=== PATIENT | female | born 1945 | race Caucasian/White ===

== ENCOUNTER 2017-07-07 21:55 | Emergency (ER) | payer MEDICARE, BC ==
[2017-07-07] MEDS ORDERED: Sodium Chloride 0.9% 1,000 ML IV SCH (22:15)
--- NOTE | 2017-07-07 22:17 | EDM.PDOC ---
ED HPI GENERAL MEDICAL PROBLEM - General Chief Complaint: General Stated Complaint: WEAK [id number] Time Seen by Provider: 07/07/17 22:14 Source of Information: Reports: Patient, Family History Limitations: Reports: No Limitations - History of Present Illness INITIAL COMMENTS - FREE TEXT/NARRATIVE: c/o weakness today, though was low BS but it was 355. no CP/SOB. feels better now. also has sore on abd on-off few months. seen PMD but nothing much done. on no ABX. - Related Data Allergies Allergy/AdvReac Type Severity Reaction Status Date / Time rosuvastatin calcium Allergy unknown Verified 07/07/17 22:33 [From Crestor] Home Meds: Home Meds Glimepiride [Amaryl] 4 mg PO DAILY 07/07/17 [History] Hydrochlorothiazide 25 mg PO DAILY 07/07/17 [History] Insulin Aspart [NovoLOG] See Protocol SUBCUT DAILY PRN 07/07/17 [History] Insulin Glarg,Human.Rec.Analog [LantUS Solostar] 34 unit SUBCUT DAILY 07/07/17 [ History] Lisinopril [Lisinopril] 40 mg PO DAILY 07/07/17 [History] Metoprolol Tartrate 100 mg PO DAILY 07/07/17 [History] amLODIPine [Norvasc] 5 mg PO DAILY 07/07/17 [History] Past Medical History Endocrine/Metabolic History: Reports: Diabetes, Type I - Past Surgical History GI Surgical History: Reports: Cholecystectomy Social & Family History - Tobacco Use Smoking Status *Q: Never Smoker - Recreational Drug Use Recreational Drug Use: No ED ROS GENERAL - Review of Systems Review Of Systems: ROS reveals no pertinent complaints other than HPI. ED EXAM, GENERAL - Physical Exam Exam: See Below Exam Limited By: No Limitations General Appearance: Alert, WD/WN, No Apparent Distress Ears: Hearing Grossly Normal Throat/Mouth: Normal Voice, No Airway Compromise Head: Atraumatic Neck: Non-Tender, Full Range of Motion Respiratory/Chest: No Respiratory Distress Cardiovascular: Regular Rate, Rhythm GI/Abdominal: Soft, Non-Tender. No: Distended, Guarding, Rigid, Rebound, Tender , Abnormal Bowel Sounds Neurological: Alert, Oriented, Normal Cognition, No Motor/Sensory Deficits Psychiatric: Normal Affect, Normal Mood Skin Exam: Warm, Dry, Normal Color, Erythema, Rash, Other (over abdomen) Lymphatic: No Adenopathy Course - Vital Signs Last Recorded V/S: Last Vital Signs Temp 37.1 C 07/07/17 22:10 Pulse 115 H 07/07/17 22:10 Resp 18 07/07/17 22:10 BP 136/80 07/07/17 22:10 Pulse Ox 98 07/07/17 22:10 - Orders/Labs/Meds Orders: Active Orders 24 hr Category Date Time Status CULTURE BLOOD [BC] Stat Lab 07/07/17 22:25 Received Sodium Chloride 0.9% [Normal Saline] 1,000 ml Med 07/07/17 22:15 Active IV ASDIRECTED Medication Orders Sodium Chloride (Normal Saline) 1,000 mls @ 125 mls/hr IV ASDIRECTED SKY Last Admin: 07/07/17 22:34 Dose: 125 mls/hr Labs: Laboratory Tests 07/07/17 07/07/17 07/07/17 Range/Units 22:25 22:25 22:25 WBC 17.3 H (5.0-10.0) 10^3/uL RBC 4.73 (4.2-5.4) 10^6/uL Hgb 14.6 (12.0-16.0) g/dL Hct 43.1 (37.0-47.0) % MCV 91.1 (80-100) fL MCH 30.9 (27.0-34.0) pg MCHC 33.9 (33.0-35.0) g/dL Plt Count 333 (150-450) 10^3/uL Neut % (Auto) 88.7 H (42.2-75.2) % Lymph % (Auto) 3.8 L (20.5-50.1) % Ware % (Auto) 7.3 (2-8) % Eos % (Auto) 0.0 L (1.0-3.0) % Baso % (Auto) 0.2 (0.0-1.0) % VBG pH (7.31-7.41) VBG pCO2 (41-51) mmHg VBG pO2 (35-42) mmHg VBG HCO3 (19-25) mmol/l VBG O2 Saturation (60-80) % VBG Base Excess ((-2)-(+3)) mmol/l O2 Delivery Device Sodium 129 L (135-145) mmol/L Potassium 4.1 (3.6-5.0) mmol/L Chloride 94 L (101-111) mmol/L Carbon Dioxide 19.0 L (21.0-31.0) mmol/L Anion Gap 20.1 BUN 28 H (7-18) mg/dL Creatinine 2.3 H (0.6-1.3) mg/dL Est Cr Clr Drug Dosing 18.81 mL/min Estimated GFR (MDRD) 21 BUN/Creatinine Ratio 12.17 Glucose 445 H* (74-105) mg/dL POC Glucose (83-110) mg/dl Lactic Acid 3.7 H (0.5-2.2) mmol/L Calcium 9.4 (8.4-10.2) mg/dl Total Bilirubin 1.4 H (0.2-1.0) mg/dL AST 38 (10-42) IU/L ALT 26 (10-60) IU/L Alkaline Phosphatase 94 (42-121) IU/L B-Natriuretic Peptide (0-100) pg/ml Total Protein 8.1 (6.7-8.2) g/dl Albumin 3.7 (3.2-5.5) g/dl Globulin 4.4 Albumin/Globulin Ratio 0.84 07/07/17 07/07/17 07/08/17 Range/Units 22:25 23:36 00:03 WBC (5.0-10.0) 10^3/uL RBC (4.2-5.4) 10^6/uL Hgb (12.0-16.0) g/dL Hct (37.0-47.0) % MCV (80-100) fL MCH (27.0-34.0) pg MCHC (33.0-35.0) g/dL Plt Count (150-450) 10^3/uL Neut % (Auto) (42.2-75.2) % Lymph % (Auto) (20.5-50.1) % Ware % (Auto) (2-8) % Eos % (Auto) (1.0-3.0) % Baso % (Auto) (0.0-1.0) % VBG pH 7.35 (7.31-7.41) VBG pCO2 31 L (41-51) mmHg VBG pO2 33 L (35-42) mmHg VBG HCO3 17 L (19-25) mmol/l VBG O2 Saturation 58.5 L (60-80) % VBG Base Excess -7.3 L ((-2)-(+3)) mmol/l O2 Delivery Device Room air Sodium (135-145) mmol/L Potassium (3.6-5.0) mmol/L Chloride (101-111) mmol/L Carbon Dioxide (21.0-31.0) mmol/L Anion Gap BUN (7-18) mg/dL Creatinine (0.6-1.3) mg/dL Est Cr Clr Drug Dosing mL/min Estimated GFR (MDRD) BUN/Creatinine Ratio Glucose (74-105) mg/dL POC Glucose 407 H* (83-110) mg/dl Lactic Acid (0.5-2.2) mmol/L Calcium (8.4-10.2) mg/dl Total Bilirubin (0.2-1.0) mg/dL AST (10-42) IU/L ALT (10-60) IU/L Alkaline Phosphatase (42-121) IU/L B-Natriuretic Peptide 126 H (0-100) pg/ml Total Protein (6.7-8.2) g/dl Albumin (3.2-5.5) g/dl Globulin Albumin/Globulin Ratio Meds: Medications Generic Name Dose Route Start Last Admin Trade Name Freq PRN Reason Stop Dose Admin Sodium Chloride 1,000 mls @ 125 mls/hr 07/07/17 22:15 07/07/17 22:34 Normal Saline IV 125 mls/hr ASDIRECTED SKY Administration Discontinued Medications Generic Name Dose Route Start Last Admin Trade Name Freq PRN Reason Stop Dose Admin Clindamycin Phosphate 900 mg/ 106 mls @ 200 mls/hr 07/07/17 23:50 07/07/17 23 :58 Sodium Chloride IV 07/08/17 00:21 200 mls/hr ONETIME ONE Administration Insulin Human Regular 5 unit 07/07/17 23:04 07/07/17 23:12 Humulin R IV 07/07/17 23:05 5 units ONETIME ONE Administration Protocol - Re-Assessments/Exams Free Text/Narrative Re-Assessment/Exam: 07/08/17 01:14 results discussed with pt and case discussed with Dr Mcmillan @ who kindly accepted pt. Departure - Departure Time of Disposition: 01:14 Disposition: DC/Tfer to Acute Hospital 02 Condition: Fair Clinical Impression: Abdominal wall cellulitis DKA (diabetic ketoacidoses) Qualifiers: Diabetes mellitus type: other specified (including ELOY) Diabetes mellitus complication detail: without coma Qualified Code(s): E13.10 - Other specified diabetes mellitus with ketoacidosis without coma - Discharge Information Forms: Interfacility Transfer EMTALA - My Orders Last 24 Hours: My Active Orders 07/07/17 22:15 Sodium Chloride 0.9% [Normal Saline] 1,000 ml IV ASDIRECTED 07/07/17 22:25 CULTURE BLOOD [BC] Stat - Assessment/Plan Last 24 Hours: My Active Orders 07/07/17 22:15 Sodium Chloride 0.9% [Normal Saline] 1,000 ml IV ASDIRECTED 07/07/17 22:25 CULTURE BLOOD [BC] Stat
[2017-07-07] MEDS ORDERED: Insulin Regular, Human 100 Units/ML 3 ML Vial IV ONE (23:04)
[2017-07-07 23:45] LABS: BASE EXCESS VENOUS -7.3 mmol/l ((-2)-(+3)); BICARBONATE,VENOUS 17 mmol/l (19-25); O2 DELIVERY DEVICE ROOM AIR; O2 SATURATION VENOUS 58.5 % (60-80); PCO2 VENOUS 31 mmHg (41-51); PO2 VENOUS 33 mmHg (35-42)
[2017-07-07 23:49] LABS: PH,VENOUS 7.35 (7.31-7.41)
[2017-07-07] MEDS ORDERED: Clindamycin Phosphate 900 MG in Sodium Chloride 0.9% 100 ML IV ONE (23:50)
[2017-07-08] MEDS ORDERED: Insulin Regular, Human 100 Units/ML 3 ML Vial IV SCH (08:00)
== END 2017-07-08 01:56 ==
LOC: DL.ED 21:55
DX: E10.10 Type 1 diabetes mellitus with ketoacidosis without coma (principal); L03.311 Cellulitis of abdominal wall; Z79.4 Long term (current) use of insulin; Z79.899 Other long term (current) drug therapy; Z88.8 Allergy status to other drugs, medicaments and biological substances
CPT/HCPCS: 36415; 71250; 74176; 80053; 82803; 82962; 83605; 83880; 85025; 87040; 96361; 96365; 96375; 99285; J1815; J7030; J7050; 87077; 87186; 99284; S0077

== ENCOUNTER 2020-05-12 11:09 | Inpatient (IN) | payer MEDICARE, MEDICAID ==
[2020-05-12] MEDS ORDERED: Ondansetron 4 MG/2 ML SDV IVPUSH PRN (12:17)
[2020-05-12] MEDS ORDERED: Magnesium Hydroxide 400 MG/5 ML Susp 30 ML Cup PO PRN (12:17)
--- NOTE | 2020-05-12 12:36 | PCM.HP ---
H&P History of Present Illness - General Date of Service: 05/12/20 Admit Problem/Dx: Admission Diagnosis/Problem Admission Diagnosis/Problem CHF, Congestive heart failure Source of Information: Patient History Limitations: Reports: No Limitations - History of Present Illness Initial Comments - Free Text/Narative: Cindy is a 74-year-old female with past medical history of type 2 diabetes, hypertension, hyperlipidemia, CKD stage III who presented to the clinic today for evaluation of increasing lower extremity swelling and dyspnea on exertion onset over a week. Per patient over the past 1 week she she noticed increasing swelling to lower extremities bilaterally. She says swelling started with her bilateral feet but has increased progressively to involve the whole leg. She also reports dyspnea on exertion. Shortness of breath is more with activity but okay at rest. She denies cough, wheezing. No fever or chills. She denies orthopnea, PND. She denies calf pain. No recent travel or sick contacts. She denies abdominal pain, nausea, diarrhea. She also reports weight gain over the past week. Clinic vitals were stable. Labs essentially unremarkable. Opponent negative. Creatinine 1.7 at baseline. Globin stable at 11.6. WBC 3.4. Chest x-ray show mild pulmonary venous congestion which is new. Admission was requested for further management. Onset of Symptoms: Reports: Gradual Duration of Symptoms: Reports: Day(s): Location: Reports: Lower Extremity, Left, Lower Extremity, Right Quality: Reports: Ache Improves with: Reports: None Worsens with: Reports: None Associated Symptoms: Reports: Shortness of Breath, Weakness Right Lower Leg Pain Score (Numeric/FACES): 0 - Related Data Allergies/Adverse Reactions: Allergies Allergy/AdvReac Type Severity Reaction Status Date / Time rosuvastatin calcium Allergy unknown Verified 05/12/20 11:28 [From Crestor] Home Medications: Home Meds Glimepiride [Amaryl] 4 mg PO ACBREAKFAST 07/07/17 [History] Hydrochlorothiazide 25 mg PO DAILY 07/07/17 [History] Insulin Aspart [NovoLOG] 5 - 20 unit SUBCUT TID PRN 07/07/17 [History] Lisinopril 20 mg PO DAILY 07/07/17 [History] Metoprolol Tartrate 200 mg PO BID 07/07/17 [History] amLODIPine [Norvasc] 5 mg PO BID 07/07/17 [History] Cyanocobalamin (Vitamin B-12) [Cyanocobalamin Injection] 1,000 mcg INJECT .MONTHLY 05/12/20 [History] Insulin Glargine,Hum.Rec.Anlog [Basaglar Kwikpen U-100] 34 units SUBCUT BEDTIME 05/12/20 [History] Isosorbide Mononitrate [Isosorbide Mononitrate ER] 60 mg PO BID 05/12/20 [History] Sertraline HCl 25 mg PO DAILY 05/12/20 [History] Past Medical History Cardiovascular History: Reports: High Cholesterol, Hypertension Gastrointestinal History: Reports: None [employer] History: Reports: Musculoskeletal History: Reports: Arthritis Other Musculoskeletal History: 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 Endocrine/Metabolic History: Reports: Diabetes, Type I - Infectious Disease History Infectious Disease History: Reports: Chicken Pox, Measles, Mumps - Past Surgical History Cardiovascular Surgical History: Reports: None GI Surgical History: Reports: Cholecystectomy Musculoskeletal Surgical History: Reports: None Social & Family History - Family History Family Medical History: Noncontributory - Tobacco Use Smoking Status *Q: Former Smoker Used Tobacco, but Quit: No Second Hand Smoke Exposure: No - Caffeine Use Caffeine Use: Reports: Coffee - Recreational Drug Use Recreational Drug Use: No H&P Review of Systems - Review of Systems: Review Of Systems: See Below General: Reports: No Symptoms HEENT: Reports: No Symptoms Pulmonary: Reports: Shortness of Breath Cardiovascular: Reports: No Symptoms Gastrointestinal: Reports: No Symptoms Genitourinary: Reports: No Symptoms Musculoskeletal: Reports: Other (Bilateral lower extremity pitting edema) Skin: Reports: No Symptoms Psychiatric: Reports: No Symptoms Neurological: Reports: No Symptoms Hematologic/Lymphatic: Reports: No Symptoms Immunologic: Reports: No Symptoms Exam - Exam Exam: See Below - Vital Signs Vital Signs: Last Vital Signs Temp 97.4 F 05/12/20 11:27 Pulse 64 05/12/20 11:27 Resp 18 05/12/20 11:27 BP 147/64 H 05/12/20 11:27 Pulse Ox 98 05/12/20 11:27 Weight: 289 lb 6.4 oz - Exam Quality Assessment: DVT Prophylaxis General: Alert, Oriented, 4 HEENT: PERRLA, Hearing Intact, Mucosa Moist & [place], Nares Patent, Normal Nasal Septum, Posterior Pharynx Clear, Conjunctiva Clear, EOMI, EACs Clear, TMs Clear Neck: JVD Lungs: Crackles, Other (Mild bibasilar crackles) Cardiovascular: Regular Rate, Regular Rhythm GI/Abdominal Exam: Normal Bowel Sounds, Soft, Non-Tender, No Organomegaly, No Distention, No Abnormal Bruit, No Mass, Pelvis Stable (Female) Exam: Normal External Exam, Normal Speculum Exam, Normal Bimanual Exam Rectal (Female) Exam: Deferred Back Exam: Normal Inspection, Full Range of Motion, NT Extremities: Pedal Edema (Bilateral pitting edema up to mid thigh), Other Skin: Warm, Dry, Intact Neurological: Cranial Nerves Intact, Reflexes Equal Bilateral Neuro Extensive - Mental Status: Alert, Oriented x3, Normal Mood/Affect, Normal Cognition Neuro Extensive - Motor, Sensory, Reflexes: CN II-XII Intact, Normal Gait, Normal Reflexes Psychiatric: Alert, Normal Affect, Normal Mood - Patient Data Result Diagrams: 05/13/20 05:43 05/13/20 05:43 - Problem List (1) Acute exacerbation of CHF (congestive heart failure) SNOMED Code(s): 583944628, 34683094815409 ICD Code: I50.9 - HEART FAILURE, UNSPECIFIED Status: Acute Current Visit: Yes Problem List Initiated/Reviewed/Updated: Yes Orders Last 24hrs: Active Orders 24 hr Category Date Time Status Patient Status [ADT] Routine ADT 05/12/20 12:17 Ordered Ambulate [RC] ASDIRECTED Care 05/12/20 12:17 Ordered Blood Glucose Check, Bedside [RC] QIDACANDBED Care 05/12/20 12:17 Ordered Height and Weight [RC] DAILY Care 05/12/20 12:17 Ordered Intake and Output [RC] QSHIFT Care 05/12/20 12:20 Ordered Notify Provider Vital Signs [RC] ASDIRECTED Care 05/12/20 12:21 Ordered Oxygen Therapy [RC] PRN Care 05/12/20 12:17 Ordered Pulse Oximetry [RC] PRN Care 05/12/20 12:20 Ordered VTE/DVT Education [RC] PER UNIT ROUTINE Care 05/12/20 12:17 Ordered Vital Signs [RC] Q4H Care 05/12/20 12:17 Ordered PT Evaluation and Treatment [CONS] Routine Cons 05/12/20 12:27 Ordered Consistent Carbohydrate Diet [DIET] Diet 05/12/20 Dinner Active B-TYPE NATRIURETIC PEPTIDE,BNP [CHEM] Routine Lab 05/12/20 12:29 Ordered COMPREHENSIVE METABOLIC PN,CMP [CHEM] AM Lab 05/13/20 05:11 Ordered MAGNESIUM [CHEM] Routine Lab 05/12/20 12:27 Ordered PHOSPHORUS [CHEM] Routine Lab 05/12/20 12:27 Ordered Acetaminophen [TylenoL] Med 05/12/20 12:17 Ordered 650 mg PO Q4H PRN Heparin Sodium Med 05/12/20 21:00 Ordered 5,000 units SUBCUT Q12HR Magnesium Hydroxide [Milk of Magnesia] Med 05/12/20 12:17 Ordered 30 ml PO Q12H PRN Ondansetron [Zofran] Med 05/12/20 12:17 Ordered 4 mg IVPUSH Q6H PRN Resuscitation Status Routine Resus Stat 05/12/20 12:17 Ordered Medication Orders Heparin Sodium (Porcine) (Heparin Sodium) 5,000 units SUBCUT Q12HR SKY Assessment/Plan Comment:: #Acute CHF exacerbation Patient presented with increasing bilateral leg swelling and dyspnea on exertion Bilateral pitting edema with mild bibasilar crackles on exam Admit to medical floor Monitor vitals BNP Echo IV Lasix 40 mg twice daily GDMT:ACEi, BB Daily weights Fluid restriction #Type 2 diabetes Continue home insulin regimen SSI for optimal glycemic control Accu-Cheks Progressing with protocol #Hypertension BP within acceptable limits Continue home medication #Hyperlipidemia Continue statin #CKD stage III Stable creatinine and GFR Monitor renal function closely #Diet Consistent carbohydrate #CODE STATUS Had a discussion with patient and she requested to be full code at this time.
[2020-05-12] MEDS: Acetaminophen 325 MG Tab PO PRN ×2 (13:51→22:02)
[2020-05-12] MEDS: Furosemide 40 MG/4 ML VIAL IVPUSH SCH (14:24)
[2020-05-12] MEDS ORDERED: Insulin Lispro 100 Units/ML 3 ML Vial SUBCUT SCH (17:00)
[2020-05-12] MEDS: Insulin Lispro 100 Units/ML 3 ML Vial SUBCUT SCH ×2 (18:11→21:44)
[2020-05-12] MEDS ORDERED: amLODIPine 5 MG Tab PO SCH (21:00)
[2020-05-12] MEDS ORDERED: Heparin Sodium 5,000 Units/ML Vial SUBCUT SCH (21:15)
[2020-05-12] MEDS: Insulin Glarg,Human.Rec.Analog 100 Unit/ML SUBCUT SCH (21:46)
[2020-05-12] MEDS: Isosorbide Mononitrate 60 MG Tab.ER PO SCH (21:49)
[2020-05-12] MEDS: Metoprolol Tartrate 50 MG Tab PO SCH (21:50)
[2020-05-12] MEDS ORDERED: Heparin Sodium 5,000 Units/ML Vial SUBCUT ONE (22:15)
[2020-05-13 06:53] LABS: ANION GAP 11.4 mEq/L (7-13)
[2020-05-13] MEDS ORDERED: Hydrochlorothiazide 25 MG Tab PO SCH (09:00)
[2020-05-13] MEDS ORDERED: Furosemide 20 MG/2 ML VIAL IVPUSH ONE (09:00)
[2020-05-13] MEDS: Furosemide 40 MG/4 ML VIAL IVPUSH SCH ×2 (09:07→17:04)
[2020-05-13] MEDS: Glimepiride 2 MG Tab PO SCH (09:08)
[2020-05-13] MEDS: Lisinopril 20 MG Tab PO SCH (09:08)
[2020-05-13] MEDS: Isosorbide Mononitrate 60 MG Tab.ER PO SCH ×2 (09:08→21:04)
[2020-05-13] MEDS: Sertraline 50 MG Tab PO SCH (09:08)
[2020-05-13] MEDS: Metoprolol Tartrate 50 MG Tab PO SCH ×2 (09:10→21:05)
[2020-05-13] MEDS: Insulin Lispro 100 Units/ML 3 ML Vial SUBCUT SCH ×4 (09:10→21:19)
[2020-05-13] MEDS: Heparin Sodium 5,000 Units/ML Vial SUBCUT SCH ×3 (09:11→21:06)
--- NOTE | 2020-05-13 10:03 | PCM.PN ---
- General Info Date of Service: 05/13/20 Admission Dx/Problem (Free Text): Admission Diagnosis/Problem Admission Diagnosis/Problem CHF, Congestive heart failure Subjective Update: Cindy is a 74-year-old female with past medical history of type 2 diabetes, hypertension, hyperlipidemia, CKD stage III who presented to the clinic on 05/12 for evaluation of increasing lower extremity swelling and dyspnea on exertion onset over a week. She was found to have acute CHF exacerbation, new onset. She was admitted and started on diuretics. Today she was seen and examined. She is doing okay. Overnight events. She is diuresing well. She denies chest pain, shortness of breath, fever, chills. Functional Status: Reports: Pain Controlled - Review of Systems General: Reports: No Symptoms HEENT: Reports: No Symptoms Pulmonary: Reports: Shortness of Breath Cardiovascular: Reports: No Symptoms Gastrointestinal: Reports: No Symptoms Genitourinary: Reports: No Symptoms Musculoskeletal: Reports: No Symptoms Skin: Reports: No Symptoms Neurological: Reports: No Symptoms Psychiatric: Reports: No Symptoms - Patient Data Vitals - Most Recent: Last Vital Signs Temp 98.6 F 05/13/20 08:00 Pulse 66 05/13/20 09:10 Resp 18 05/13/20 08:00 BP 127/52 L 05/13/20 09:10 Pulse Ox 100 05/13/20 08:00 Weight - Most Recent: 286 lb 3.2 oz I&O - Last 24 Hours: Intake & Output 05/12/20 05/13/20 05/13/20 22:59 06:59 14:59 Intake Total 480 240 Output Total 1500 200 Balance -1020 40 Lab Results Last 24 Hours: Laboratory Results - last 24 hr 05/12/20 05/12/20 05/12/20 Range/Units 13:44 16:49 20:45 WBC (5.0-10.0) 10^3/uL RBC (4.2-5.4) 10^6/uL Hgb (12.0-16.0) g/dL Hct (37.0-47.0) % MCV (80-100) fL MCH (27.0-34.0) pg MCHC (33.0-35.0) g/dL Plt Count (150-450) 10^3/uL Sodium (136-145) mmol/L Potassium (3.5-5.1) mmol/L Chloride (98-107) mmol/L Carbon Dioxide (21-32) mmol/L Anion Gap (7-13) mEq/L BUN (7-18) mg/dL Creatinine (0.55-1.02) mg/dL Est Cr Clr Drug Dosing mL/min Estimated GFR (MDRD) BUN/Creatinine Ratio (No establ ref range) Glucose (74-99) mg/dL POC Glucose 167 H 248 H (83-110) mg/dl Calcium (8.5-10.1) mg/dL Phosphorus 4.1 (2.6-4.7) mg/dL Magnesium 1.7 L (1.8-2.4) mg/dL Total Bilirubin (0.2-1.0) mg/dL AST (15-37) U/L ALT (14-59) U/L Alkaline Phosphatase (46-116) U/L Total Protein (6.4-8.2) g/dL Albumin (3.4-5.0) g/dL Globulin Albumin/Globulin Ratio 05/13/20 05/13/20 05/13/20 Range/Units 05:43 05:43 07:57 WBC 5.6 (5.0-10.0) 10^3/uL RBC 3.40 L (4.2-5.4) 10^6/uL Hgb 10.2 L D (12.0-16.0) g/dL Hct 32.7 L (37.0-47.0) % MCV 96.2 D (80-100) fL MCH 30.0 (27.0-34.0) pg MCHC 31.2 L (33.0-35.0) g/dL Plt Count 267 (150-450) 10^3/uL Sodium 142 (136-145) mmol/L Potassium 4.4 (3.5-5.1) mmol/L Chloride 106 (98-107) mmol/L Carbon Dioxide 29 (21-32) mmol/L Anion Gap 11.4 (7-13) mEq/L BUN 42 H (7-18) mg/dL Creatinine 1.45 H (0.55-1.02) mg/dL Est Cr Clr Drug Dosing 27.30 mL/min Estimated GFR (MDRD) 35 BUN/Creatinine Ratio 29.0 (No establ ref range) Glucose 72 L (74-99) mg/dL POC Glucose 78 L (83-110) mg/dl Calcium 8.9 (8.5-10.1) mg/dL Phosphorus (2.6-4.7) mg/dL Magnesium (1.8-2.4) mg/dL Total Bilirubin 0.4 (0.2-1.0) mg/dL AST 15 (15-37) U/L ALT 35 (14-59) U/L Alkaline Phosphatase 90 (46-116) U/L Total Protein 6.4 (6.4-8.2) g/dL Albumin 3.0 L (3.4-5.0) g/dL Globulin 3.4 Albumin/Globulin Ratio 0.88 Med Orders - Current: Current Medications Acetaminophen (Tylenol) 650 mg PO Q4H PRN PRN Reason: Pain (Mild 1-3)/fever Last Admin: 05/12/20 22:02 Dose: 650 mg Documented by: Furosemide (Lasix) 40 mg IVPUSH BIDDIURETIC [facility] Glimepiride (Amaryl) 4 mg PO DAILY@0800 [facility] Last Admin: 05/13/20 09:08 Dose: 4 mg Documented by: Heparin Sodium (Porcine) (Heparin Sodium) 5,000 units SUBCUT Q12HR [facility] Last Admin: 05/13/20 09:12 Dose: 5,000 units Documented by: Insulin Glargine (Lantus) 34 unit SUBCUT BEDTIME [facility] Last Admin: 05/12/20 21:46 Dose: 34 units Documented by: Insulin Human Lispro (Humalog) 0 unit SUBCUT WITHMEALSANDBED [facility]; Protocol Last Admin: 05/13/20 09:10 Dose: Not Given Documented by: Isosorbide Mononitrate (Imdur) 60 mg PO BID [facility] Last Admin: 05/13/20 09:08 Dose: 60 mg Documented by: Lisinopril (Prinivil) 20 mg PO DAILY [facility] Last Admin: 05/13/20 09:08 Dose: 20 mg Documented by: Magnesium Hydroxide (Milk Of Magnesia) 30 ml PO Q12H PRN PRN Reason: Constipation Metoprolol Tartrate (Lopressor) 200 mg PO BID [facility] Last Admin: 05/13/20 09:10 Dose: 200 mg Documented by: Ondansetron HCl (Zofran) 4 mg IVPUSH Q6H PRN PRN Reason: Nausea/Vomiting Sertraline HCl (Zoloft) 25 mg PO DAILY [facility] Last Admin: 05/13/20 09:08 Dose: 25 mg Documented by: Discontinued Medications Amlodipine Besylate (Norvasc) 5 mg PO BID [facility] Last Admin: 05/12/20 21:49 Dose: 5 mg Documented by: Furosemide (Lasix) 20 mg IVPUSH BIDDIURETIC [facility] Last Admin: 05/13/20 09:07 Dose: Not Given Documented by: Furosemide (Lasix) 20 mg IVPUSH NOW ONE Stop: 05/13/20 09:01 Last Admin: 05/13/20 09:11 Dose: 20 mg Documented by: Heparin Sodium (Porcine) (Heparin Sodium) 5,000 units SUBCUT Q12HR [facility] Stop: 05/12/20 23:00 Last Admin: 05/12/20 22:51 Dose: Not Given Documented by: Heparin Sodium (Porcine) (Heparin Sodium) 5,000 units SUBCUT ONETIME ONE Stop: 05/12/20 22:16 Last Admin: 05/12/20 22:06 Dose: 5,000 units Documented by: Hydrochlorothiazide (Hydrochlorothiazide) 25 mg PO DAILY [facility] Insulin Human Lispro (Humalog) 0 unit SUBCUT TIDMEALS [facility] Last Admin: 05/12/20 18:21 Dose: Not Given Documented by: - Exam Quality Assessment: DVT Prophylaxis General: Alert, Oriented HEENT: Pupils Equal, Pupils Reactive, EOMI, Mucous Membr. Moist/[place]: Supple Lungs: Normal Respiratory Effort, Crackles Cardiovascular: Regular Rate, Regular Rhythm GI/Abdominal Exam: Normal Bowel Sounds, Soft, Non-Tender, No Organomegaly, No Distention, No Abnormal Bruit, No Mass, Pelvis Stable (Female) Exam: Normal External Exam, Normal Speculum Exam, Normal Bimanual Exam Back Exam: Normal Inspection, Full Range of Motion Extremities: Normal Range of Motion, Non-Tender, Pedal Edema Skin: Warm, Dry, Intact Wound/Incisions: Healing Well Neurological: No New Focal Deficit Psy/Mental Status: Alert, Normal Affect, Normal Mood Sepsis Event Note - Evaluation Sepsis Screening Result: No Definite Risk - Focused Exam Vital Signs: Vital Signs Temp Pulse Pulse Resp BP BP Pulse Ox 05/13/20 09:10 66 127/52 L 05/13/20 09:08 127/62 05/13/20 08:00 98.6 F 66 18 127/62 100 05/13/20 04:40 98.7 F 63 20 140/63 95 05/13/20 00:08 98 F 62 20 113/40 L 93 L - Problem List & Annotations (1) Acute exacerbation of CHF (congestive heart failure) SNOMED Code(s): 014366450, 63078047685351 Code(s): I50.9 - HEART FAILURE, UNSPECIFIED Status: Acute Current Visit: Yes (2) Obesity SNOMED Code(s): 849879781, 757488048 Code(s): E66.9 - OBESITY, UNSPECIFIED Status: Acute Current Visit: Yes (3) Hypertension SNOMED Code(s): 07080886 Code(s): I10 - ESSENTIAL (PRIMARY) HYPERTENSION Status: Acute Current Visit: Yes (4) Hypomagnesemia SNOMED Code(s): 830222974 Code(s): E83.42 - HYPOMAGNESEMIA Status: Acute Current Visit: Yes - Problem List Review Problem List Initiated/Reviewed/Updated: Yes - My Orders Last 24 Hours: My Active Orders 05/12/20 12:17 Patient Status [ADT] Routine Ambulate [RC] ASDIRECTED Blood Glucose Check, Bedside [RC] QIDACANDBED Height and Weight [RC] 0600 Oxygen Therapy [RC] PRN VTE/DVT Education [RC] PER UNIT ROUTINE Vital Signs [RC] Q4H Acetaminophen [TylenoL] 650 mg PO Q4H PRN Magnesium Hydroxide [Milk of Magnesia] 30 ml PO Q12H PRN Ondansetron [Zofran] 4 mg IVPUSH Q6H PRN Resuscitation Status Routine 05/12/20 12:20 Intake and Output [RC] QSHIFT Pulse Oximetry [RC] PRN 05/12/20 12:21 Notify Provider Vital Signs [RC] ASDIRECTED 05/12/20 12:27 PT Evaluation and Treatment [CONS] Routine 05/12/20 Dinner Consistent Carbohydrate Diet [DIET] Fluid Restriction [DIET] 05/12/20 18:00 Insulin Lispro [HumaLOG] See Protocol SUBCUT WITHMEALSANDBED 05/12/20 21:00 Heparin Sodium 5,000 units SUBCUT Q12HR Insulin Glarg,Human.Rec.Analog [LantUS] 34 unit SUBCUT BEDTIME Isosorbide Mononitrate [Imdur] 60 mg PO BID Metoprolol Tartrate [Lopressor] 200 mg PO BID 05/13/20 08:00 Glimepiride [Amaryl] 4 mg PO DAILY@0800 05/13/20 08:55 Echo [facility] [] Routine 05/13/20 09:00 Sertraline [Zoloft] 25 mg PO DAILY lisinopriL [Prinivil] 20 mg PO DAILY 05/13/20 18:00 Furosemide [Lasix] 40 mg IVPUSH BIDDIURETIC - Plan Plan:: #Acute CHF exacerbation No echo on file. Send for echo if available Continue IV Lasix 40 mg twice daily Daily weights Fluid restriction #Hypomagnesemia Replace IV #Bilateral lower extremity pitting edema DC amlodipine given bilateral leg swelling OT for lymphedema wrap #Type 2 diabetes Continue home insulin regimen SSI for optimal glycemic control Accu-Cheks Progressing with protocol #Hypertension BP within acceptable limits Amlodipine discontinued given bilateral leg swelling Continue the rest of current meds #Hyperlipidemia Continue statin #CKD stage III Stable creatinine and GFR Monitor renal function closely #Obesity Advised to lose weight #Diet Consistent carbohydrate #CODE STATUS Had a discussion with patient and she requested to be full code at this time.
[2020-05-13] MEDS: Acetaminophen 325 MG Tab PO PRN ×3 (10:12→21:02)
[2020-05-13] MEDS ORDERED: Magnesium Sulfate/D5W 1 GM/100 ML BAG IV ONE (10:30)
[2020-05-13] MEDS: Insulin Glarg,Human.Rec.Analog 100 Unit/ML SUBCUT SCH (21:17)
[2020-05-14] MEDS: Acetaminophen 325 MG Tab PO PRN ×3 (04:13→20:45)
[2020-05-14] MEDS: Glimepiride 2 MG Tab PO SCH (09:31)
[2020-05-14] MEDS: Lisinopril 20 MG Tab PO SCH (09:32)
[2020-05-14] MEDS: Metoprolol Tartrate 50 MG Tab PO SCH ×2 (09:33→20:44)
[2020-05-14] MEDS: Sertraline 50 MG Tab PO SCH (09:33)
[2020-05-14] MEDS: Isosorbide Mononitrate 60 MG Tab.ER PO SCH ×2 (09:33→20:45)
[2020-05-14] MEDS: Heparin Sodium 5,000 Units/ML Vial SUBCUT SCH ×3 (09:34→20:44)
[2020-05-14] MEDS: Sodium Chloride 0.9% 10 ML Syringe FLUSH PRN ×2 (09:36→13:26)
[2020-05-14] MEDS: Furosemide 40 MG/4 ML VIAL IVPUSH SCH ×2 (09:36→13:26)
[2020-05-14] MEDS: Insulin Lispro 100 Units/ML 3 ML Vial SUBCUT SCH ×4 (09:40→20:52)
[2020-05-14] MEDS: Metolazone 2.5 MG Tab PO SCH (09:48)
--- NOTE | 2020-05-14 13:10 | PCM.PN ---
- General Info Date of Service: 05/14/20 Admission Dx/Problem (Free Text): Admission Diagnosis/Problem Admission Diagnosis/Problem CHF, Congestive heart failure Subjective Update: Cindy is a 74-year-old female with past medical history of type 2 diabetes, hypertension, hyperlipidemia, CKD stage III who presented to the clinic on 05/12 for evaluation of increasing lower extremity swelling and dyspnea on exertion onset over a week. She was found to have acute CHF exacerbation, new onset. She was admitted and started on diuretics. Today she was seen and examined. Diuresing well. Reports LE edema is improved but nowhere near baseline. Denies f/c, chest pain, shortness of breath, n/v/d/c, dysuria, hematuria, or any new symptoms. Functional Status: Reports: Pain Controlled - Patient Data Vitals - Most Recent: Last Vital Signs Temp 98.5 F 05/14/20 12:00 Pulse 62 05/14/20 12:00 Resp 18 05/14/20 12:00 BP 130/48 L 05/14/20 12:00 Pulse Ox 96 05/14/20 12:00 Weight - Most Recent: 282 lb 9.6 oz I&O - Last 24 Hours: Intake & Output 05/13/20 05/14/20 05/14/20 22:59 06:59 14:59 Intake Total 0 640 Output Total 1200 350 700 Balance -1200 -350 -60 Lab Results Last 24 Hours: Laboratory Results - last 24 hr 05/13/20 05/13/20 05/14/20 Range/Units 16:59 20:52 05:19 POC Glucose 118 H 175 H 50 L (83-110) mg/dl 05/14/20 05/14/20 05/14/20 Range/Units 05:58 08:32 11:22 POC Glucose 86 129 H 185 H (83-110) mg/dl Med Orders - Current: Current Medications Acetaminophen (Tylenol) 650 mg PO Q4H PRN PRN Reason: Pain (Mild 1-3)/fever Last Admin: 05/14/20 04:13 Dose: 650 mg Documented by: Furosemide (Lasix) 40 mg IVPUSH BIDDIURETIC [facility] Last Admin: 05/14/20 09:36 Dose: 40 mg Documented by: Glimepiride (Amaryl) 4 mg PO DAILY@0800 [facility] Last Admin: 05/14/20 09:31 Dose: 4 mg Documented by: Heparin Sodium (Porcine) (Heparin Sodium) 5,000 units SUBCUT Q12HR [facility] Last Admin: 05/14/20 09:41 Dose: 5,000 units Documented by: Insulin Glargine (Lantus) 34 unit SUBCUT BEDTIME [facility] Last Admin: 05/13/20 21:17 Dose: 34 units Documented by: Insulin Human Lispro (Humalog) 0 unit SUBCUT WITHMEALSANDBED [facility]; Protocol Last Admin: 05/14/20 12:43 Dose: 2 units Documented by: Isosorbide Mononitrate (Imdur) 60 mg PO BID [facility] Last Admin: 05/14/20 09:33 Dose: 60 mg Documented by: Lisinopril (Prinivil) 20 mg PO DAILY [facility] Last Admin: 05/14/20 09:32 Dose: 20 mg Documented by: Magnesium Hydroxide (Milk Of Magnesia) 30 ml PO Q12H PRN PRN Reason: Constipation Metolazone (Zaroxolyn) 2.5 mg PO DAILY [facility] Last Admin: 05/14/20 09:48 Dose: 2.5 mg Documented by: Metoprolol Tartrate (Lopressor) 200 mg PO BID [facility] Last Admin: 05/14/20 09:33 Dose: 200 mg Documented by: Ondansetron HCl (Zofran) 4 mg IVPUSH Q6H PRN PRN Reason: Nausea/Vomiting Sertraline HCl (Zoloft) 25 mg PO DAILY [facility] Last Admin: 05/14/20 09:33 Dose: 25 mg Documented by: Sodium Chloride (Saline Flush) 10 ml FLUSH ASDIRECTED PRN PRN Reason: Keep Vein Open Last Admin: 05/14/20 09:36 Dose: 10 ml Documented by: Discontinued Medications Amlodipine Besylate (Norvasc) 5 mg PO BID [facility] Last Admin: 05/12/20 21:49 Dose: 5 mg Documented by: Furosemide (Lasix) 20 mg IVPUSH BIDDIURETIC [facility] Last Admin: 05/13/20 09:07 Dose: Not Given Documented by: Furosemide (Lasix) 20 mg IVPUSH NOW ONE Stop: 05/13/20 09:01 Last Admin: 05/13/20 09:11 Dose: 20 mg Documented by: Heparin Sodium (Porcine) (Heparin Sodium) 5,000 units SUBCUT Q12HR [facility] Stop: 05/12/20 23:00 Last Admin: 05/12/20 22:51 Dose: Not Given Documented by: Heparin Sodium (Porcine) (Heparin Sodium) 5,000 units SUBCUT ONETIME ONE Stop: 05/12/20 22:16 Last Admin: 05/12/20 22:06 Dose: 5,000 units Documented by: Hydrochlorothiazide (Hydrochlorothiazide) 25 mg PO DAILY [facility] Magnesium Sulfate/Dextrose (Magnesium Sulfate In D5w 100 Premix) 1 gm in 100 mls @ 50 mls/hr IV ONETIME ONE Stop: 05/13/20 12:29 Last Admin: 05/13/20 10:29 Dose: 50 mls/hr Documented by: Insulin Human Lispro (Humalog) 0 unit SUBCUT TIDMEALS [facility] Last Admin: 05/12/20 18:21 Dose: Not Given Documented by: - Exam General: Alert, Oriented, Cooperative, No Acute Distress HEENT: Pupils Equal, Pupils Reactive, Mucous Membr. Moist/Rake Lungs: Clear to Auscultation, Normal Respiratory Effort Cardiovascular: Regular Rate, Regular Rhythm Extremities: Normal Inspection, Non-Tender, Pedal Edema (2+), Other (small healing wound on anterior right lower leg. ) Skin: Warm, Dry, Intact Wound/Incisions: Healing Well Neurological: No New Focal Deficit Psy/Mental Status: Alert, Normal Affect, Normal Mood Sepsis Event Note - Evaluation Sepsis Screening Result: No Definite Risk - Focused Exam Vital Signs: Vital Signs Temp Pulse Pulse Resp BP BP BP 05/14/20 12:00 98.5 F 62 18 130/48 L 05/14/20 09:33 65 144/65 H 05/14/20 09:32 144/65 H 05/14/20 08:00 98.3 F 65 18 144/65 H 05/14/20 04:00 98.2 F 60 18 123/58 L Pulse Ox 05/14/20 12:00 96 05/14/20 09:33 05/14/20 09:32 05/14/20 08:00 98 05/14/20 04:00 97 - Problem List & Annotations (1) Diabetes mellitus SNOMED Code(s): 18878647 Code(s): E11.9 - TYPE 2 DIABETES MELLITUS WITHOUT COMPLICATIONS Status: Acute Current Visit: Yes (2) Acute exacerbation of CHF (congestive heart failure) SNOMED Code(s): 610976640, 09223601063060 Code(s): I50.9 - HEART FAILURE, UNSPECIFIED Status: Acute Current Visit: Yes (3) Hypertension SNOMED Code(s): 68462253 Code(s): I10 - ESSENTIAL (PRIMARY) HYPERTENSION Status: Acute Current Visit: Yes (4) Obesity SNOMED Code(s): 094605893, 176464747 Code(s): E66.9 - OBESITY, UNSPECIFIED Status: Acute Current Visit: Yes - Problem List Review Problem List Initiated/Reviewed/Updated: Yes - My Orders Last 24 Hours: My Active Orders 05/14/20 UA RFX LONI AND CULT IF INDIC [URIN] Routine 05/14/20 08:29 Antiembolic Devices [RC] 08,20 DARRELL Hose [Antiembolic Hose] [OM.PC] Routine 05/14/20 09:00 metOLazone [Zaroxolyn] 2.5 mg PO DAILY - Plan Plan:: #Acute CHF exacerbation Patient presented with increasing bilateral leg swelling and dyspnea on exertion Bilateral pitting edema with mild bibasilar crackles on exam Admit to medical floor Monitor vitals BNP Echo One time dose of metolazone IV Lasix 40 mg twice daily GDMT:ACEi, BB Daily weights Fluid restriction #Type 2 diabetes Continue home insulin regimen SSI for optimal glycemic control Accu-Cheks Progressing with protocol #Hypertension BP within acceptable limits Continue home medication #Hyperlipidemia Continue statin #CKD stage III Stable creatinine and GFR Monitor renal function closely #Lower extremity wound: Healing well. Routine wound care. #Diet Consistent carbohydrate #CODE STATUS: Full code
[2020-05-14] MEDS: Insulin Glarg,Human.Rec.Analog 100 Unit/ML SUBCUT SCH (20:46)
[2020-05-15 07:10] LABS: ANION GAP 14.2 mEq/L (7-13)
[2020-05-15] MEDS: Furosemide 40 MG/4 ML VIAL IVPUSH SCH (07:25)
[2020-05-15] MEDS: Acetaminophen 325 MG Tab PO PRN ×3 (07:26→20:50)
[2020-05-15] MEDS: Glimepiride 2 MG Tab PO SCH (07:27)
[2020-05-15] MEDS: Sodium Chloride 0.9% 10 ML Syringe FLUSH PRN (07:30)
[2020-05-15] MEDS: Heparin Sodium 5,000 Units/ML Vial SUBCUT SCH ×2 (09:04→20:50)
[2020-05-15] MEDS: Sertraline 50 MG Tab PO SCH (09:08)
[2020-05-15] MEDS: Isosorbide Mononitrate 60 MG Tab.ER PO SCH ×2 (09:12→20:50)
[2020-05-15] MEDS: Insulin Lispro 100 Units/ML 3 ML Vial SUBCUT SCH ×4 (09:16→21:34)
[2020-05-15] MEDS: Metoprolol Tartrate 50 MG Tab PO SCH ×2 (10:58→20:49)
[2020-05-15] MEDS: Lisinopril 20 MG Tab PO SCH (10:58)
[2020-05-15] MEDS: Metolazone 2.5 MG Tab PO SCH (10:59)
--- NOTE | 2020-05-15 12:15 | PCM.PN ---
- General Info Date of Service: 05/15/20 Admission Dx/Problem (Free Text): Admission Diagnosis/Problem Admission Diagnosis/Problem CHF, Congestive heart failure Subjective Update: Cindy is a 74-year-old female with past medical history of type 2 diabetes, hypertension, hyperlipidemia, CKD stage III who presented to the clinic on 05/12 for evaluation of increasing lower extremity swelling and dyspnea on exertion onset over a week. She was found to have acute CHF exacerbation, new onset. She was admitted and started on diuretics. Today she was seen and examined. Diuresing well. Reports LE edema is improved. Denies f/c, chest pain, shortness of breath, n/v/d/c, dysuria, hematuria, or any new symptoms. BP low this morning. - Patient Data Vitals - Most Recent: Last Vital Signs Temp 99.9 F 05/15/20 07:43 Pulse 67 05/15/20 10:58 Resp 18 05/15/20 10:57 BP 133/53 L 05/15/20 10:58 Pulse Ox 95 05/15/20 10:57 Weight - Most Recent: 277 lb 6.4 oz I&O - Last 24 Hours: Intake & Output 05/14/20 05/15/20 05/15/20 22:59 06:59 14:59 Intake Total 660 540 Output Total 700 600 Balance -40 -60 Lab Results Last 24 Hours: Laboratory Results - last 24 hr 05/14/20 05/14/20 05/14/20 Range/Units 11:20 16:56 20:48 Sodium (136-145) mmol/L Potassium (3.5-5.1) mmol/L Chloride (98-107) mmol/L Carbon Dioxide (21-32) mmol/L Anion Gap (7-13) mEq/L BUN (7-18) mg/dL Creatinine (0.55-1.02) mg/dL Est Cr Clr Drug Dosing mL/min Estimated GFR (MDRD) Glucose (74-99) mg/dL POC Glucose 127 H 185 H (83-110) mg/dl Calcium (8.5-10.1) mg/dL Phosphorus (2.6-4.7) mg/dL Magnesium (1.8-2.4) mg/dL Urine Color Yellow (YELLOW) Urine Appearance Slightly cloudy (CLEAR) Urine pH 6.0 (5.0-9.0) Ur Specific [place] 1.025 (1.005-1.030) Urine Protein Negative (NEGATIVE) Urine Glucose (UA) Negative (NEGATIVE) Urine Ketones Negative (NEGATIVE) Urine Occult Blood Negative (NEGATIVE) Urine Nitrite Negative (NEGATIVE) Urine Bilirubin Negative (NEGATIVE) Urine Urobilinogen 0.2 (0.2-1.0) mg/dL Ur Leukocyte Esterase Small H (NEGATIVE) Urine RBC 0-5 /HPF Urine WBC 5-10 H (0-5/HPF) /HPF Ur Epithelial Cells Few (NOT SEEN) /HPF Urine Bacteria Many H (0-FEW/HPF) /HPF 05/15/20 05/15/20 05/15/20 Range/Units 06:06 06:18 07:30 Sodium 145 (136-145) mmol/L Potassium 4.2 (3.5-5.1) mmol/L Chloride 106 (98-107) mmol/L Carbon Dioxide 29 (21-32) mmol/L Anion Gap 14.2 H (7-13) mEq/L BUN 51 H (7-18) mg/dL Creatinine 1.73 H (0.55-1.02) mg/dL Est Cr Clr Drug Dosing 22.88 mL/min Estimated GFR (MDRD) 29 Glucose 70 L (74-99) mg/dL POC Glucose 70 L 66 L (83-110) mg/dl Calcium 8.8 (8.5-10.1) mg/dL Phosphorus 4.6 (2.6-4.7) mg/dL Magnesium 1.7 L (1.8-2.4) mg/dL Urine Color (YELLOW) Urine Appearance (CLEAR) Urine pH (5.0-9.0) Ur Specific [place] (1.005-1.030) Urine Protein (NEGATIVE) Urine Glucose (UA) (NEGATIVE) Urine Ketones (NEGATIVE) Urine Occult Blood (NEGATIVE) Urine Nitrite (NEGATIVE) Urine Bilirubin (NEGATIVE) Urine Urobilinogen (0.2-1.0) mg/dL Ur Leukocyte Esterase (NEGATIVE) Urine RBC /HPF Urine WBC (0-5/HPF) /HPF Ur Epithelial Cells (NOT SEEN) /HPF Urine Bacteria (0-FEW/HPF) /HPF 05/15/20 Range/Units 10:46 Sodium (136-145) mmol/L Potassium (3.5-5.1) mmol/L Chloride (98-107) mmol/L Carbon Dioxide (21-32) mmol/L Anion Gap (7-13) mEq/L BUN (7-18) mg/dL Creatinine (0.55-1.02) mg/dL Est Cr Clr Drug Dosing mL/min Estimated GFR (MDRD) Glucose (74-99) mg/dL POC Glucose 152 H (83-110) mg/dl Calcium (8.5-10.1) mg/dL Phosphorus (2.6-4.7) mg/dL Magnesium (1.8-2.4) mg/dL Urine Color (YELLOW) Urine Appearance (CLEAR) Urine pH (5.0-9.0) Ur Specific [place] (1.005-1.030) Urine Protein (NEGATIVE) Urine Glucose (UA) (NEGATIVE) Urine Ketones (NEGATIVE) Urine Occult Blood (NEGATIVE) Urine Nitrite (NEGATIVE) Urine Bilirubin (NEGATIVE) Urine Urobilinogen (0.2-1.0) mg/dL Ur Leukocyte Esterase (NEGATIVE) Urine RBC /HPF Urine WBC (0-5/HPF) /HPF Ur Epithelial Cells (NOT SEEN) /HPF Urine Bacteria (0-FEW/HPF) /HPF Med Orders - Current: Current Medications Acetaminophen (Tylenol) 650 mg PO Q4H PRN PRN Reason: Pain (Mild 1-3)/fever Last Admin: 05/15/20 07:26 Dose: 650 mg Documented by: Furosemide (Lasix) 40 mg PO DAILY [facility] Glimepiride (Amaryl) 4 mg PO DAILY@0800 [facility] Last Admin: 05/15/20 07:27 Dose: 4 mg Documented by: Heparin Sodium (Porcine) (Heparin Sodium) 5,000 units SUBCUT Q12HR [facility] Last Admin: 05/15/20 09:04 Dose: 5,000 units Documented by: Insulin Glargine (Lantus) 34 unit SUBCUT BEDTIME [facility] Last Admin: 05/14/20 20:46 Dose: 34 units Documented by: Insulin Human Lispro (Humalog) 0 unit SUBCUT WITHMEALSANDBED [facility]; Protocol Last Admin: 05/15/20 11:30 Dose: Not Given Documented by: Isosorbide Mononitrate (Imdur) 60 mg PO BID [facility] Last Admin: 05/15/20 09:12 Dose: 60 mg Documented by: Lisinopril (Prinivil) 20 mg PO DAILY [facility] Last Admin: 05/15/20 10:58 Dose: Not Given Documented by: Magnesium Hydroxide (Milk Of Magnesia) 30 ml PO Q12H PRN PRN Reason: Constipation Magnesium Oxide (Magnesium Oxide) 250 mg PO BIDM [facility] Metolazone (Zaroxolyn) 2.5 mg PO DAILY [facility] Last Admin: 05/15/20 10:59 Dose: Not Given Documented by: Metoprolol Tartrate (Lopressor) 200 mg PO BID [facility] Last Admin: 05/15/20 10:58 Dose: Not Given Documented by: Ondansetron HCl (Zofran) 4 mg IVPUSH Q6H PRN PRN Reason: Nausea/Vomiting Sertraline HCl (Zoloft) 25 mg PO DAILY [facility] Last Admin: 05/15/20 09:08 Dose: 25 mg Documented by: Sodium Chloride (Saline Flush) 10 ml FLUSH ASDIRECTED PRN PRN Reason: Keep Vein Open Last Admin: 05/15/20 07:30 Dose: 10 ml Documented by: Discontinued Medications Amlodipine Besylate (Norvasc) 5 mg PO BID [facility] Last Admin: 05/12/20 21:49 Dose: 5 mg Documented by: Furosemide (Lasix) 20 mg IVPUSH BIDDIURETIC [facility] Last Admin: 05/13/20 09:07 Dose: Not Given Documented by: Furosemide (Lasix) 40 mg IVPUSH BIDDIURETIC [facility] Last Admin: 05/15/20 07:25 Dose: 40 mg Documented by: Furosemide (Lasix) 20 mg IVPUSH NOW ONE Stop: 05/13/20 09:01 Last Admin: 05/13/20 09:11 Dose: 20 mg Documented by: Heparin Sodium (Porcine) (Heparin Sodium) 5,000 units SUBCUT Q12HR [facility] Stop: 05/12/20 23:00 Last Admin: 05/12/20 22:51 Dose: Not Given Documented by: Heparin Sodium (Porcine) (Heparin Sodium) 5,000 units SUBCUT ONETIME ONE Stop: 05/12/20 22:16 Last Admin: 05/12/20 22:06 Dose: 5,000 units Documented by: Hydrochlorothiazide (Hydrochlorothiazide) 25 mg PO DAILY [facility] Magnesium Sulfate/Dextrose (Magnesium Sulfate In D5w 100 Premix) 1 gm in 100 mls @ 50 mls/hr IV ONETIME ONE Stop: 05/13/20 12:29 Last Admin: 05/13/20 10:29 Dose: 50 mls/hr Documented by: Insulin Human Lispro (Humalog) 0 unit SUBCUT TIDMEALS [facility] Last Admin: 05/12/20 18:21 Dose: Not Given Documented by: - Exam General: Alert, Oriented, Cooperative, No Acute Distress HEENT: Pupils Equal, Pupils Reactive Neck: Supple Lungs: Clear to Auscultation, Normal Respiratory Effort Cardiovascular: Regular Rate, Regular Rhythm GI/Abdominal Exam: Normal Bowel Sounds, Soft, Non-Tender, No Distention Extremities: Pedal Edema (1+ edema. ) Skin: Warm, Intact Neurological: No New Focal Deficit Psy/Mental Status: Alert, Normal Affect, Normal Mood Sepsis Event Note - Evaluation Sepsis Screening Result: No Definite Risk - Focused Exam Vital Signs: Vital Signs Temp Pulse Pulse Resp BP BP BP 05/15/20 10:58 67 133/53 L 05/15/20 10:57 67 18 133/53 L 05/15/20 09:24 68 17 123/45 L 05/15/20 07:43 99.9 F 65 18 130/48 L 05/15/20 04:00 98.4 F 67 18 149/71 H Pulse Ox 05/15/20 10:58 05/15/20 10:57 95 05/15/20 09:24 95 05/15/20 07:43 97 05/15/20 04:00 98 - Problem List & Annotations (1) Diabetes mellitus SNOMED Code(s): 26931303 Code(s): E11.9 - TYPE 2 DIABETES MELLITUS WITHOUT COMPLICATIONS Status: Acute Current Visit: Yes (2) Acute exacerbation of CHF (congestive heart failure) SNOMED Code(s): 096483709, 09359522600333 Code(s): I50.9 - HEART FAILURE, UNSPECIFIED Status: Acute Current Visit: Yes (3) Hypertension SNOMED Code(s): 82935223 Code(s): I10 - ESSENTIAL (PRIMARY) HYPERTENSION Status: Acute Current Visit: Yes (4) Obesity SNOMED Code(s): 061222004, 072567091 Code(s): E66.9 - OBESITY, UNSPECIFIED Status: Acute Current Visit: Yes - Problem List Review Problem List Initiated/Reviewed/Updated: Yes - My Orders Last 24 Hours: My Active Orders 05/14/20 11:20 CULTURE URINE [RM] Routine 05/15/20 12:30 Magnesium Oxide 250 mg PO BIDM 05/16/20 05:11 BASIC METABOLIC PANEL,BMP [CHEM] AM MAGNESIUM [CHEM] AM PHOSPHORUS [CHEM] AM 05/16/20 09:00 Furosemide [Lasix] 40 mg PO DAILY - Plan Plan:: #Acute CHF exacerbation Patient presented with increasing bilateral leg swelling and dyspnea on exertion Bilateral pitting edema with mild bibasilar crackles on exam Admit to medical floor Monitor vitals BNP Echo as outpatient. One time dose of metolazone Stop IV lasix. Start oral lasix tomorrow. GDMT:ACEi, BB Daily weights Fluid restriction #ANUSHKA: Cr of 1.7; was 1.4. Likely from over-diuresis. - Cut down on diuresis. - Monitor renal function. #Type 2 diabetes: BG in the 60s this morning. Continue home insulin regimen SSI for optimal glycemic control Accu-Cheks Progressing with protocol #Hypertension BP within acceptable limits Continue home medication #Hyperlipidemia Continue statin #CKD stage III Stable creatinine and GFR Monitor renal function closely #Lower extremity wound: Healing well. Routine wound care. #Diet Consistent carbohydrate #CODE STATUS: Full code
[2020-05-15] MEDS: Insulin Glarg,Human.Rec.Analog 100 Unit/ML SUBCUT SCH (21:33)
[2020-05-16 06:58] LABS: ANION GAP 12.6 mEq/L (7-13)
[2020-05-16] MEDS ORDERED: Furosemide 40 MG Tab PO SCH (09:00)
[2020-05-16] MEDS: Isosorbide Mononitrate 60 MG Tab.ER PO SCH (09:27)
[2020-05-16] MEDS: Lisinopril 20 MG Tab PO SCH (09:27)
[2020-05-16] MEDS: Metoprolol Tartrate 50 MG Tab PO SCH (09:28)
[2020-05-16] MEDS: Glimepiride 2 MG Tab PO SCH (09:29)
[2020-05-16] MEDS: Metolazone 2.5 MG Tab PO SCH (09:30)
[2020-05-16] MEDS: Sertraline 50 MG Tab PO SCH (09:31)
[2020-05-16] MEDS: Insulin Lispro 100 Units/ML 3 ML Vial SUBCUT SCH ×2 (09:43→12:18)
[2020-05-16] MEDS: Heparin Sodium 5,000 Units/ML Vial SUBCUT SCH (11:05)
--- NOTE | 2020-05-16 12:14 | PCM.DCSUM1 ---
Discharge Summary - Hospital Course Free Text/Narrative:: Cindy is a 74-year-old female with past medical history of type 2 diabetes, hypertension, hyperlipidemia, CKD stage III who was admitted for acute on chronic diastolic CHF exacerbation after she presented to the clinic today for evaluation of increasing lower extremity swelling and dyspnea on exertion onset over a week. HPI Initial Comments: Cindy is a 74-year-old female with past medical history of type 2 diabetes, hypertension, hyperlipidemia, CKD stage III who presented to the clinic today for evaluation of increasing lower extremity swelling and dyspnea on exertion onset over a week. Per patient over the past 1 week she she noticed increasing swelling to lower extremities bilaterally. She says swelling started with her bilateral feet but has increased progressively to involve the whole leg. She also reports dyspnea on exertion. Shortness of breath is more with activity but okay at rest. She denies cough, wheezing. No fever or chills. She denies orthopnea, PND. She denies calf pain. No recent travel or sick contacts. She denies abdominal pain, nausea, diarrhea. She also reports weight gain over the past week. Clinic vitals were stable. Labs essentially unremarkable. Opponent negative. Creatinine 1.7 at baseline. Globin stable at 11.6. WBC 3.4. Chest x-ray show mild pulmonary venous congestion which is new. Admission was requested for further management. Diagnosis: Stroke: No - Discharge Data Discharge Date: 05/16/20 Discharge Disposition: Home, Self-Care 01 Condition: Good - Referral to Home Health Primary Care Physician: Marline Fraser, [employer] - Discharge Diagnosis/Problem(s) (1) Diabetes mellitus SNOMED Code(s): 13081548 ICD Code: E11.9 - TYPE 2 DIABETES MELLITUS WITHOUT COMPLICATIONS Status: Acute Current Visit: Yes (2) Acute exacerbation of CHF (congestive heart failure) SNOMED Code(s): 459993088, 64959308912342 ICD Code: I50.9 - HEART FAILURE, UNSPECIFIED Status: Acute Current Visit: Yes (3) Hypertension SNOMED Code(s): 53759267 ICD Code: I10 - ESSENTIAL (PRIMARY) HYPERTENSION Status: Acute Current Visit: Yes (4) Obesity SNOMED Code(s): 033099484, 635327373 ICD Code: E66.9 - OBESITY, UNSPECIFIED Status: Acute Current Visit: Yes - Patient Summary/Data Consults: Consultations 05/12/20 12:27 PT Evaluation and Treatment [CONS] Routine 05/13/20 11:12 OT Evaluation and Treatment [CONS] Routine - Discharge Plan *PRESCRIPTION DRUG MONITORING PROGRAM REVIEWED*: No *COPY OF PRESCRIPTION DRUG MONITORING REPORT IN PATIENT SHELLY: No Prescriptions/Med Rec: Furosemide [Lasix] 40 mg PO DAILY #30 tab Home Medications: Home Meds Glimepiride [Amaryl] 4 mg PO ACBREAKFAST 07/07/17 [History] Hydrochlorothiazide 25 mg PO DAILY 07/07/17 [History] Insulin Aspart [NovoLOG] 5 - 20 unit SUBCUT TID PRN 07/07/17 [History] Lisinopril 20 mg PO DAILY 07/07/17 [History] Metoprolol Tartrate 200 mg PO BID 07/07/17 [History] amLODIPine [Norvasc] 5 mg PO BID 07/07/17 [History] Cyanocobalamin (Vitamin B-12) [Cyanocobalamin Injection] 1,000 mcg INJECT .MON THLY 05/12/20 [History] Insulin Glargine,Hum.Rec.Anlog [Basaglar Kwikpen U-100] 34 units SUBCUT BEDTIME 05/12/20 [History] Isosorbide Mononitrate [Isosorbide Mononitrate ER] 60 mg PO BID 05/12/20 [His tory] Sertraline HCl 25 mg PO DAILY 05/12/20 [History] Furosemide [Lasix] 40 mg PO DAILY #30 tab 05/16/20 [Rx] Referrals: Marline Fraser NP [Primary Care Provider] - - Discharge Summary/Plan Comment DC Time >30 min.: Yes - General Info Date of Service: 05/16/20 Admission Dx/Problem (Free Text: Admission Diagnosis/Problem Admission Diagnosis/Problem CHF, Congestive heart failure Subjective Update: Cindy is a 74-year-old female with past medical history of type 2 diabetes, hypertension, hyperlipidemia, CKD stage III who presented to the clinic on 05/12 for evaluation of increasing lower extremity swelling and dyspnea on exertion onset over a week. She was found to have acute CHF exacerbation, new onset. She was admitted and started on diuretics. Today she was seen and examined. Diuresing well. Reports LE edema is improved. Denies f/c, chest pain, shortness of breath, n/v/d/c, dysuria, hematuria, or any new symptoms. - Patient Data Vitals - Most Recent: Last Vital Signs Temp 98.2 F 05/15/20 19:30 Pulse 70 05/16/20 09:28 Resp 18 05/15/20 19:30 BP 127/47 L 05/16/20 09:28 Pulse Ox 97 05/15/20 19:30 Weight - Most Recent: 273 lb 6.4 oz I&O - Last 24 hours: Intake & Output 05/15/20 05/16/20 05/16/20 22:59 06:59 14:59 Intake Total 100 200 Output Total 900 1350 Balance -800 -1150 Lab Results - Last 24 hrs: Laboratory Results - last 24 hr 05/14/20 05/15/20 05/15/20 Range/Units 11:20 16:36 21:29 Sodium (136-145) mmol/L Potassium (3.5-5.1) mmol/L Chloride (98-107) mmol/L Carbon Dioxide (21-32) mmol/L Anion Gap (7-13) mEq/L BUN (7-18) mg/dL Creatinine (0.55-1.02) mg/dL Est Cr Clr Drug Dosing mL/min Estimated GFR (MDRD) Glucose (74-99) mg/dL POC Glucose 131 H 140 H (83-110) mg/dl Calcium (8.5-10.1) mg/dL Phosphorus (2.6-4.7) mg/dL Magnesium (1.8-2.4) mg/dL Urine RBC 0-5 /HPF Urine WBC 5-10 H (0-5/HPF) /HPF Ur Epithelial Cells Few (NOT SEEN) /HPF Urine Bacteria Many H (0-FEW/HPF) /HPF SARS CoV-2 RNA Rapid ROBBY (NEGATIVE) 05/16/20 05/16/20 05/16/20 Range/Units 05:14 06:00 07:14 Sodium 143 (136-145) mmol/L Potassium 4.6 (3.5-5.1) mmol/L Chloride 104 (98-107) mmol/L Carbon Dioxide 31 (21-32) mmol/L Anion Gap 12.6 (7-13) mEq/L BUN 51 H (7-18) mg/dL Creatinine 1.67 H (0.55-1.02) mg/dL Est Cr Clr Drug Dosing 23.71 mL/min Estimated GFR (MDRD) 30 Glucose 85 (74-99) mg/dL POC Glucose 62 L 167 H (83-110) mg/dl Calcium 9.1 (8.5-10.1) mg/dL Phosphorus 4.0 (2.6-4.7) mg/dL Magnesium 1.8 (1.8-2.4) mg/dL Urine RBC /HPF Urine WBC (0-5/HPF) /HPF Ur Epithelial Cells (NOT SEEN) /HPF Urine Bacteria (0-FEW/HPF) /HPF SARS CoV-2 RNA Rapid ROBBY (NEGATIVE) 05/16/20 05/16/20 Range/Units 11:10 11:58 Sodium (136-145) mmol/L Potassium (3.5-5.1) mmol/L Chloride (98-107) mmol/L Carbon Dioxide (21-32) mmol/L Anion Gap (7-13) mEq/L BUN (7-18) mg/dL Creatinine (0.55-1.02) mg/dL Est Cr Clr Drug Dosing mL/min Estimated GFR (MDRD) Glucose (74-99) mg/dL POC Glucose 161 H (83-110) mg/dl Calcium (8.5-10.1) mg/dL Phosphorus (2.6-4.7) mg/dL Magnesium (1.8-2.4) mg/dL Urine RBC /HPF Urine WBC (0-5/HPF) /HPF Ur Epithelial Cells (NOT SEEN) /HPF Urine Bacteria (0-FEW/HPF) /HPF SARS CoV-2 RNA Rapid ROBBY Negative (NEGATIVE) LONI Results - Last 24 hrs: Microbiology 05/14/20 11:20 Urine Culture - Preliminary Urine, Voided Med Orders - Current: Current Medications Acetaminophen (Tylenol) 650 mg PO Q4H PRN PRN Reason: Pain (Mild 1-3)/fever Last Admin: 05/15/20 20:50 Dose: 650 mg Documented by: Furosemide (Lasix) 40 mg PO DAILY [facility] Last Admin: 05/16/20 09:30 Dose: 40 mg Documented by: Glimepiride (Amaryl) 4 mg PO DAILY@0800 [facility] Last Admin: 05/16/20 09:29 Dose: 4 mg Documented by: Heparin Sodium (Porcine) (Heparin Sodium) 5,000 units SUBCUT Q12HR [facility] Last Admin: 05/16/20 11:05 Dose: Not Given Documented by: Insulin Glargine (Lantus) 34 unit SUBCUT BEDTIME [facility] Last Admin: 05/15/20 21:33 Dose: 34 units Documented by: Insulin Human Lispro (Humalog) 0 unit SUBCUT WITHMEALSANDBED [facility]; Protocol Last Admin: 05/16/20 09:43 Dose: 2 units Documented by: Isosorbide Mononitrate (Imdur) 60 mg PO BID [facility] Last Admin: 05/16/20 09:27 Dose: 60 mg Documented by: Lisinopril (Prinivil) 20 mg PO DAILY [facility] Last Admin: 05/16/20 09:27 Dose: 20 mg Documented by: Magnesium Hydroxide (Milk Of Magnesia) 30 ml PO Q12H PRN PRN Reason: Constipation Magnesium Oxide (Magnesium Oxide) 250 mg PO BIDMEALS [facility] Last Admin: 05/16/20 09:29 Dose: 250 mg Documented by: Metolazone (Zaroxolyn) 2.5 mg PO DAILY [facility] Last Admin: 05/16/20 09:30 Dose: 2.5 mg Documented by: Metoprolol Tartrate (Lopressor) 200 mg PO BID [facility] Last Admin: 05/16/20 09:28 Dose: 200 mg Documented by: Ondansetron HCl (Zofran) 4 mg IVPUSH Q6H PRN PRN Reason: Nausea/Vomiting Sertraline HCl (Zoloft) 25 mg PO DAILY [facility] Last Admin: 05/16/20 09:31 Dose: 25 mg Documented by: Sodium Chloride (Saline Flush) 10 ml FLUSH ASDIRECTED PRN PRN Reason: Keep Vein Open Last Admin: 05/15/20 07:30 Dose: 10 ml Documented by: Discontinued Medications Amlodipine Besylate (Norvasc) 5 mg PO BID [facility] Last Admin: 05/12/20 21:49 Dose: 5 mg Documented by: Furosemide (Lasix) 20 mg IVPUSH BIDDIURETIC [facility] Last Admin: 05/13/20 09:07 Dose: Not Given Documented by: Furosemide (Lasix) 40 mg IVPUSH BIDDIURETIC [facility] Last Admin: 05/15/20 07:25 Dose: 40 mg Documented by: Furosemide (Lasix) 20 mg IVPUSH NOW ONE Stop: 05/13/20 09:01 Last Admin: 05/13/20 09:11 Dose: 20 mg Documented by: Heparin Sodium (Porcine) (Heparin Sodium) 5,000 units SUBCUT Q12HR [facility] Stop: 05/12/20 23:00 Last Admin: 05/12/20 22:51 Dose: Not Given Documented by: Heparin Sodium (Porcine) (Heparin Sodium) 5,000 units SUBCUT ONETIME ONE Stop: 05/12/20 22:16 Last Admin: 05/12/20 22:06 Dose: 5,000 units Documented by: Hydrochlorothiazide (Hydrochlorothiazide) 25 mg PO DAILY [facility] Magnesium Sulfate/Dextrose (Magnesium Sulfate In D5w 100 Premix) 1 gm in 100 mls @ 50 mls/hr IV ONETIME ONE Stop: 05/13/20 12:29 Last Admin: 05/13/20 10:29 Dose: 50 mls/hr Documented by: Insulin Human Lispro (Humalog) 0 unit SUBCUT TIDMEALS [facility] Last Admin: 05/12/20 18:21 Dose: Not Given Documented by: - Exam General: Reports: Alert, Oriented, Cooperative, No Acute Distress HEENT: Reports: Pupils Equal, Pupils Reactive, Mucous Membr. Moist/[place] Neck: Reports: Supple Lungs: Reports: Clear to Auscultation, Normal Respiratory Effort Cardiovascular: Reports: Regular Rate, Regular Rhythm Extremities: Normal Inspection, Non-Tender, Pedal Edema (1+ edema. ) Skin: Reports: Warm, Dry, Intact Wound/Incisions: Reports: Healing Well (Wound on anterior right lower leg. ) Neurological: Reports: No New Focal Deficit Psy/Mental Status: Reports: Alert, Normal Affect, Normal Mood
== END 2020-05-16 13:20 | disposition home or self-care (01) | DRG 291 ==
LOC: UNDOADMIN 11:09 → DL.MS 11:09
PROVIDERS: ADMIT Student in an Organized Health Care Education/Training Program; ATTEND Internal Medicine
DX: I13.0 Hypertensive heart and chronic kidney disease with heart failure and stage 1 through stage 4 chronic kidney disease, or unspecified chronic kidney disease (principal); I50.33 Acute on chronic diastolic (congestive) heart failure; N17.9 Acute kidney failure, unspecified; L97.909 Non-pressure chronic ulcer of unspecified part of unspecified lower leg with unspecified severity; Z68.42 Body mass index [BMI] 45.0-49.9, adult; E11.22 Type 2 diabetes mellitus with diabetic chronic kidney disease; N18.30 Chronic kidney disease, stage 3 unspecified; E78.5 Hyperlipidemia, unspecified; E78.00 Pure hypercholesterolemia, unspecified; Z20.828 Contact with and (suspected) exposure to other viral communicable diseases; E66.9 Obesity, unspecified; Z88.8 Allergy status to other drugs, medicaments and biological substances; Z79.4 Long term (current) use of insulin; Z79.899 Other long term (current) drug therapy; Z90.49 Acquired absence of other specified parts of digestive tract; Z87.891 Personal history of nicotine dependence
CPT/HCPCS: 36415; 80048; 80053; 81001; 81003; 82962; 83735; 84100; 85027; 87086; 87088; 87186; 97140-GO; 97165-GO; A9270-GY; J1644; J1815-GY; J1940; J3475; U0002

== ENCOUNTER 2020-12-15 22:59 | Inpatient (IN) | payer MEDICARE, MEDICAID ==
[2020-12-15 23:57] LABS: ANION GAP 21.6 mEq/L (7-13); CHLORIDE,CL 102 mmol/L (98-107); SODIUM,NA 140 mmol/L (136-145)
--- NOTE | 2020-12-16 00:18 | CR ---
PROCEDURE INFORMATION: Exam: XR Chest Exam date and time: 12/15/2020 11:57 PM Age: 75 years old Clinical indication: Shortness of breath; Additional info: SOB TECHNIQUE: Imaging protocol: XR of the chest. Views: 1 view. COMPARISON: CT Chest Abdomen Pelvis wo Cont 07/07/2017 11:40 PM FINDINGS: Lungs: There are markedly low lung volumes causing crowding of pulmonary vascular and interstitial markings. Allowing for this, no definite pulmonary edema identified. Pleural spaces: There is no pleural effusion or pneumothorax. Heart/Mediastinum: Heart size appears to be mild Marilia prominent but is likely exacerbated due to low lung volumes. Bones/joints: Unremarkable. IMPRESSION: 1. Low lung volumes without definite acute cardiopulmonary disease.
[2020-12-16] MEDS ORDERED: Levofloxacin/Dextrose 5%-Water 500 MG in Premix Bag 1 BAG IV ONE (01:52)
--- NOTE | 2020-12-16 02:03 | EDM.PDOC ---
ED HPI GENERAL MEDICAL PROBLEM - General Chief Complaint: Respiratory Problem Stated Complaint: AMBULANCE Time Seen by Provider: 12/15/20 23:30 Source of Information: Reports: Patient, RN History Limitations: Reports: No Limitations - History of Present Illness INITIAL COMMENTS - FREE TEXT/NARRATIVE: ED with c/o SOB and chills , no cough, no nausea, no chest pain, weak tonight tx with max assist 2. No urinary sx. Generalized Pain Score (Numeric/FACES): 5 - Related Data Allergies Allergy/AdvReac Type Severity Reaction Status Date / Time ciprofloxacin Allergy Cannot Verified 12/16/20 02:05 Remember rosuvastatin calcium Allergy unknown Verified 05/12/20 11:28 [From Crestor] Home Meds: Home Meds Hydrochlorothiazide 25 mg PO DAILY 07/07/17 [History] Insulin Aspart [NovoLOG] 14 unit SUBCUT ACLUNCH 07/07/17 [History] Lisinopril 20 mg PO DAILY 07/07/17 [History] Metoprolol Tartrate 200 mg PO BID 07/07/17 [History] amLODIPine [Norvasc] 5 mg PO BID 07/07/17 [History] Cyanocobalamin (Vitamin B-12) [Cyanocobalamin Injection] 1,000 mcg INJECT .MONTHLY 05/12/20 [History] Insulin Glargine,Hum.Rec.Anlog [Basaglar Kwikpen U-100] 10 units SUBCUT ACBREAKFAST 05/12/20 [History] Isosorbide Mononitrate [Isosorbide Mononitrate ER] 60 mg PO BID 05/12/20 [Histor y] Furosemide [Lasix] 40 mg PO DAILY #30 tab 05/16/20 [Rx] Acetaminophen [Tylenol Extra Strength] 1,000 mg PO DAILY PRN 12/16/20 [History] Acetaminophen [Tylenol] 650 mg PO BID 12/16/20 [History] Aspirin [Aspirin EC] 81 mg PO DAILY 12/16/20 [History] Folic Acid 0.4 mg PO DAILY 12/16/20 [History] Hydrocodone/Acetaminophen [Hydrocodone-Acetamin 5-325 mg] 1 each PO BEDTIME 12/16/20 [History] Hydrocodone/Acetaminophen [Hydrocodone-Acetamin 5-325 mg] 1 each PO Q4HR PRN 12/16/20 [History] Insulin Aspart [NovoLOG] 14 unit SQ ACDINNER 12/16/20 [History] Insulin Glargine,Hum.Rec.Anlog [Lantus Solostar] 40 unit SQ BEDTIME 12/16/20 [History] Magnesium Hydroxide [Milk of Magnesia] 30 ml PO DAILY PRN 12/16/20 [History] Vitamin B6-pyridOXINE 200 mg PO DAILY 12/16/20 [History] Past Medical History Cardiovascular History: Reports: High Cholesterol, Hypertension Gastrointestinal History: Reports: None VP PRODUCT History: Reports: Musculoskeletal History: Reports: Arthritis Other Musculoskeletal History: 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 ED EXAM, GENERAL - Physical Exam Exam: See Below Exam Limited By: No Limitations General Appearance: Alert, Mild Distress (uncomfortable with position in bed), Obese Eye Exam: Bilateral Eye: EOMI Ears: Normal External Exam, Hearing Grossly Normal Nose: Normal Inspection Throat/Mouth: Normal Inspection Head: Atraumatic, Normocephalic Neck: Normal Inspection Respiratory/Chest: No Respiratory Distress, Lungs Clear, Decreased Breath Sounds Cardiovascular: Normal Peripheral Pulses, Regular Rate, Rhythm GI/Abdominal: Normal Bowel Sounds, Soft, Non-Tender Extremities: Pedal Edema (1+) Neurological: Alert, Oriented Psychiatric: Flat Affect Skin Exam: Warm, Dry, Intact, Normal Color #1 Interpretation EKG Date: 12/16/20 Time: 00:08 Rhythm: NSR Rate (Beats/Min): 91 [place]: Normal P-Wave: Present QRS: Normal Comparison: NA - No Prior EKG EKG Interpretation Comments: sinus Course - Vital Signs Last Recorded V/S: Last Vital Signs Temp 99.5 F 12/16/20 16:00 Pulse 84 12/16/20 22:30 Resp 22 H 12/16/20 16:00 BP 120/52 L 12/16/20 22:30 Pulse Ox 100 12/16/20 16:00 - Orders/Labs/Meds Orders: Medication Orders Acetaminophen (Acetaminophen 325 Mg Tab) 650 mg PO Q4H PRN PRN Reason: Pain (Mild 1-3)/fever Last Admin: 12/16/20 07:22 Dose: 650 mg Documented by: PATRICIA Amlodipine Besylate (Amlodipine 5 Mg Tab) 5 mg PO BID [facility] Last Admin: 12/16/20 22:30 Dose: 5 mg Documented by: Admin: 12/16/20 08:31 Dose: 5 mg Documented by: PATRICIA Dextrose/Water (50% Dextrose In Water 50 Ml Syringe) 50 ml IV Q15M PRN PRN Reason: Hypoglycemia Glucagon (Glucagon,Human Recombinant 1 Mg Vial) 1 mg IM Q15M PRN PRN Reason: Hypoglycemia Heparin Sodium (Porcine) (Heparin Sodium 5,000 Units/Ml Vial) 5,000 units SUBCUT Q12HR [facility] Last Admin: 12/16/20 22:34 Dose: 5,000 units Documented by: QUANG Ceftriaxone Sodium 1 gm/ (Sodium Chloride) 50 mls @ 100 mls/hr IV Q24H [facility] Albumin Human (Flexbumin 25%) 12.5 gm in 50 mls @ 100 mls/hr IV Q8HR [facility] Last Admin: 12/16/20 22:19 Dose: 100 mls/hr Documented by: Admin: 12/16/20 16:13 Dose: 100 mls/hr Documented by: CARLINE Insulin Glargine (Insulin Glarg,Human.Rec.Analog 100 Unit/Ml) 10 unit SUBCUT DAILY@0800 [facility] Last Admin: 12/16/20 08:29 Dose: 10 units Documented by: PATRICIA Insulin Human Lispro (Insulin Lispro 100 Units/Ml 3 Ml Vial) 14 unit SUBCUT ACLUNCH [facility] Last Admin: 12/16/20 11:58 Dose: 14 units Documented by: PATRICIA Insulin Human Lispro (Insulin Lispro 100 Units/Ml 3 Ml Vial) 0 unit SUBCUT WITHMEALSANDBED [facility]; Protocol Last Admin: 12/16/20 22:30 Dose: 2 units Documented by: Admin: 12/16/20 17:05 Dose: 1 units Documented by: Admin: 12/16/20 11:58 Dose: 4 units Documented by: Admin: 12/16/20 08:28 Dose: 2 units Documented by: PATRICIA Isosorbide Mononitrate (Isosorbide Mononitrate 60 Mg Tab.Er) 60 mg PO BID [facility] Last Admin: 12/16/20 22:29 Dose: 60 mg Documented by: Admin: 12/16/20 08:30 Dose: 60 mg Documented by: PATRICIA Metoprolol Tartrate (Metoprolol Tartrate 50 Mg Tab) 200 mg PO BID [facility] Last Admin: 12/16/20 22:30 Dose: 200 mg Documented by: Admin: 12/16/20 08:30 Dose: 200 mg Documented by: PATRICIA Ondansetron HCl (Ondansetron 4 Mg/2 Ml Sdv) 4 mg IVPUSH Q4H PRN PRN Reason: Nausea/Vomiting Pramipexole Dihydrochloride (Pramipexole 0.125 Mg Tab) 0.25 mg PO BEDTIME PRN PRN Reason: Other Last Admin: 12/16/20 22:59 Dose: 0.25 mg Documented by: QUANG Sodium Chloride (Sodium Chloride 0.9% 10 Ml Syringe) 10 ml FLUSH ASDIRECTED PRN PRN Reason: Keep Vein Open Last Admin: 12/16/20 22:53 Dose: 10 ml Documented by: QUANG Labs: Laboratory Tests 12/15/20 12/15/20 12/15/20 Range/Units 23:21 23:26 23:26 WBC 8.3 (5.0-10.0) 10^3/uL RBC 4.75 (4.2-5.4) 10^6/uL Hgb 14.7 D (12.0-16.0) g/dL Hct 44.8 (37.0-47.0) % MCV 94.3 (80-100) fL MCH 30.9 (27.0-34.0) pg MCHC 32.8 L (33.0-35.0) g/dL Plt Count 93 L D (150-450) 10^3/uL Neut % (Auto) 91.6 H (42.2-75.2) % Lymph % (Auto) 4.4 L (20.5-50.1) % [place] % (Auto) 2.6 (2-8) % Eos % (Auto) 1.0 (1.0-3.0) % Baso % (Auto) 0.4 (0.0-1.0) % Sodium 140 (136-145) mmol/L Potassium 5.6 H (3.5-5.1) mmol/L Chloride 102 (98-107) mmol/L Carbon Dioxide 22 (21-32) mmol/L Anion Gap 21.6 H (7-13) mEq/L BUN 87 H D (7-18) mg/dL Creatinine 2.96 H D (0.55-1.02) mg/dL Est Cr Clr Drug Dosing 14.32 mL/min Estimated GFR (MDRD) 15 BUN/Creatinine Ratio 29.4 (No establ ref range) Glucose 146 H (70-99) mg/dL Lactic Acid 0.8 (0.4-2.0) mmol/L Calcium 8.8 (8.5-10.1) mg/dL Magnesium 1.7 L (1.8-2.4) mg/dL Total Bilirubin 0.5 (0.2-1.0) mg/dL AST 50 H (15-37) U/L ALT 44 (14-59) U/L Alkaline Phosphatase 139 H (46-116) U/L Troponin I < 0.017 (0.000-0.056) ng/mL B-Natriuretic Peptide 138 H (0-100) pg/ml Total Protein 7.3 (6.4-8.2) g/dL Albumin 3.5 (3.4-5.0) g/dL Globulin 3.8 Albumin/Globulin Ratio 0.9 Urine Color (YELLOW) Urine Appearance (CLEAR) Urine pH (5.0-9.0) Ur Specific [place] (1.005-1.030) Urine Protein (NEGATIVE) Urine Glucose (UA) (NEGATIVE) Urine Ketones (NEGATIVE) Urine Occult Blood (NEGATIVE) Urine Nitrite (NEGATIVE) Urine Bilirubin (NEGATIVE) Urine Urobilinogen (0.2-1.0) mg/dL Ur Leukocyte Esterase (NEGATIVE) Urine RBC /HPF Urine WBC (0-5/HPF) /HPF Ur Epithelial Cells (NOT SEEN) /HPF Amorphous Sediment (NOT SEEN) /HPF Urine Bacteria (0-FEW/HPF) /HPF Urine Mucus (NOT SEEN) /LPF SARS-CoV-2 RNA (ROBBY) (NEGATIVE) 05/11/21 05/11/21 Range/Units 01:35 02:07 WBC (5.0-10.0) 10^3/uL RBC (4.2-5.4) 10^6/uL Hgb (12.0-16.0) g/dL Hct (37.0-47.0) % MCV (80-100) fL MCH (27.0-34.0) pg MCHC (33.0-35.0) g/dL Plt Count (150-450) 10^3/uL Neut % (Auto) (42.2-75.2) % Lymph % (Auto) (20.5-50.1) % [place] % (Auto) (2-8) % Eos % (Auto) (1.0-3.0) % Baso % (Auto) (0.0-1.0) % Sodium (136-145) mmol/L Potassium (3.5-5.1) mmol/L Chloride (98-107) mmol/L Carbon Dioxide (21-32) mmol/L Anion Gap (7-13) mEq/L BUN (7-18) mg/dL Creatinine (0.55-1.02) mg/dL Est Cr Clr Drug Dosing mL/min Estimated GFR (MDRD) BUN/Creatinine Ratio (No establ ref range) Glucose (70-99) mg/dL Lactic Acid (0.4-2.0) mmol/L Calcium (8.5-10.1) mg/dL Magnesium (1.8-2.4) mg/dL Total Bilirubin (0.2-1.0) mg/dL AST (15-37) U/L ALT (14-59) U/L Alkaline Phosphatase (46-116) U/L Troponin I (0.000-0.056) ng/mL B-Natriuretic Peptide (0-100) pg/ml Total Protein (6.4-8.2) g/dL Albumin (3.4-5.0) g/dL Globulin Albumin/Globulin Ratio Urine Color Yellow (YELLOW) Urine Appearance Turbid (CLEAR) Urine pH 5.0 (5.0-9.0) Ur Specific [place] 1.020 (1.005-1.030) Urine Protein 30 H (NEGATIVE) Urine Glucose (UA) Negative (NEGATIVE) Urine Ketones Negative (NEGATIVE) Urine Occult Blood Moderate H (NEGATIVE) Urine Nitrite Positive H (NEGATIVE) Urine Bilirubin Negative (NEGATIVE) Urine Urobilinogen 0.2 (0.2-1.0) mg/dL Ur Leukocyte Esterase Small H (NEGATIVE) Urine RBC >100 H /HPF Urine WBC >100 H (0-5/HPF) /HPF Ur Epithelial Cells Few (NOT SEEN) /HPF Amorphous Sediment Few (NOT SEEN) /HPF Urine Bacteria Many H (0-FEW/HPF) /HPF Urine Mucus Few H (NOT SEEN) /LPF SARS-CoV-2 RNA (ROBBY) Negative (NEGATIVE) Meds: Medications Generic Name Dose Route Start Last Admin Trade Name Freq PRN Reason Stop Dose Admin Acetaminophen 650 mg 12/16/20 03:12 12/16/20 07:22 Acetaminophen 325 Mg Tab PO 650 mg Q4H PRN Administration Pain (Mild 1-3)/fever Amlodipine Besylate 5 mg 12/16/20 09:00 12/16/20 22:30 Amlodipine 5 Mg Tab PO 5 mg BID [facility] Administration Dextrose/Water 50 ml 12/16/20 03:17 50% Dextrose In Water 50 Ml Syringe IV Q15M PRN Hypoglycemia Glucagon 1 mg 12/16/20 03:17 Glucagon,Human Recombinant 1 Mg Vial IM Q15M PRN Hypoglycemia Heparin Sodium (Porcine) 5,000 units 12/16/20 21:00 12/16/20 22:34 Heparin Sodium 5,000 Units/Ml Vial SUBCUT 5,000 units Q12HR [facility] Administration Ceftriaxone Sodium 1 gm/ 50 mls @ 100 mls/hr 12/17/20 06:00 Sodium Chloride IV Q24H [facility] Albumin Human 12.5 gm in 50 mls @ 100 mls/hr 12/16/20 15:30 12/16/20 22:19 Flexbumin 25% IV 100 mls/hr Q8HR [facility] Administration Insulin Glargine 10 unit 12/16/20 08:00 12/16/20 08:29 Insulin Glarg,Human.Rec.Analog 100 Unit/Ml SUBCUT 10 units DAILY@0800 [facility] Administration Insulin Human Lispro 14 unit 12/16/20 11:00 12/16/20 11:58 Insulin Lispro 100 Units/Ml 3 Ml Vial SUBCUT 14 units ACLUNCH [facility] Administration Insulin Human Lispro 0 unit 12/16/20 08:00 12/16/20 22:30 Insulin Lispro 100 Units/Ml 3 Ml Vial SUBCUT 2 units WITHMEALSANDBED [facility] Administration Protocol Isosorbide Mononitrate 60 mg 12/16/20 09:00 12/16/20 22:29 Isosorbide Mononitrate 60 Mg Tab.Er PO 60 mg BID [facility] Administration Metoprolol Tartrate 200 mg 12/16/20 09:00 12/16/20 22:30 Metoprolol Tartrate 50 Mg Tab PO 200 mg BID [facility] Administration Ondansetron HCl 4 mg 12/16/20 03:12 Ondansetron 4 Mg/2 Ml Sdv IVPUSH Q4H PRN Nausea/Vomiting Pramipexole Dihydrochloride 0.25 mg 12/16/20 22:41 12/16/20 22:59 Pramipexole 0.125 Mg Tab PO 0.25 mg BEDTIME PRN Administration Other Sodium Chloride 10 ml 12/16/20 03:12 12/16/20 22:53 Sodium Chloride 0.9% 10 Ml Syringe FLUSH 10 ml ASDIRECTED PRN Administration Keep Vein Open Discontinued Medications Generic Name Dose Route Start Last Admin Trade Name Freq PRN Reason Stop Dose Admin Heparin Sodium (Porcine) 5,000 units 12/16/20 03:15 12/16/20 15:21 Heparin Sodium 5,000 Units/Ml Vial SUBCUT Not Given Q12H [facility] Levofloxacin/Dextrose 500 mg/ 100 mls @ 100 mls/hr 12/16/20 01:52 12/16/20 03:36 Premix IV 12/16/20 02:51 Not Given ONETIME ONE Ceftriaxone Sodium 1 gm/ 50 mls @ 100 mls/hr 12/16/20 02:06 12/16/20 02:26 Sodium Chloride IV 12/16/20 02:35 100 mls/hr ONETIME ONE Administration Sodium Chloride 1,000 mls @ 75 mls/hr 12/16/20 03:15 12/16/20 16:14 Normal Saline IV 75 mls/hr ASDIRECTED [facility] Infusion Magnesium Sulfate/Dextrose 1 gm in 100 mls @ 50 mls/hr 12/16/20 03:15 12/16/20 16:14 Magnesium Sulfate In D5w 1 Gm/100 Ml IV 12/16/20 05:14 Infused ONETIME ONE Infusion Ceftriaxone Sodium 1 gm/ 50 mls @ 100 mls/hr 12/16/20 03:15 12/16/20 03:28 Sodium Chloride IV Not Given Q24H [facility] Magnesium Sulfate 2 gm in 50 mls @ 25 mls/hr 12/16/20 14:00 12/16/20 18:47 Magnesium Sulfate In Water 2 Gm/50 Ml IV 12/16/20 19:59 25 mls/hr Q4H [facility] Infusion Insulin Glargine 10 unit 12/16/20 06:00 12/16/20 07:11 Insulin Glarg,Human.Rec.Analog 100 Unit/Ml SUBCUT Not Given ACBREAKFAST [facility] Sodium Polystyrene Sulfonate 30 gm 12/16/20 03:15 12/16/20 03:35 Sodium Polystyrene Sulfonate 15 Gm/60 Ml Susp 60 Ml Bot PO 12/16/20 03:16 30 gm NOW ONE Administration Departure - Departure Time of Disposition: 02:25 Disposition: Home, Self-Care 01 Condition: Fair Clinical Impression: Hyperglycemia UTI (urinary tract infection) Qualifiers: Urinary tract infection type: acute cystitis Hematuria presence: without hematuria Qualified Code(s): N30.00 - Acute cystitis without hematuria - Discharge Information *PRESCRIPTION DRUG MONITORING PROGRAM REVIEWED*: No *COPY OF PRESCRIPTION DRUG MONITORING REPORT IN PATIENT SHELLY: No Sepsis Event Note (ED) - Evaluation Sepsis Screening Result: No Definite Risk
[2020-12-16] MEDS ORDERED: cefTRIAXone 1 GM in Sodium Chloride 0.9% 50 ML IV ONE (02:06)
[2020-12-16] MEDS ORDERED: Ondansetron 4 MG/2 ML SDV IVPUSH PRN (03:12)
[2020-12-16] MEDS ORDERED: cefTRIAXone 1 GM in Sodium Chloride 0.9% 50 ML IV SCH (03:15)
[2020-12-16] MEDS ORDERED: Sodium Chloride 0.9% 1,000 ML IV SCH (03:15)
[2020-12-16] MEDS ORDERED: Magnesium Sulfate/D5W 1 GM/100 ML BAG IV ONE (03:15)
[2020-12-16] MEDS ORDERED: Sodium Polystyrene Sulfonate 15 GM/60 ML Susp 60 ML Bot PO ONE (03:15)
[2020-12-16] MEDS ORDERED: Glucagon,Human Recombinant 1 MG Vial IM PRN (03:17)
[2020-12-16] MEDS ORDERED: 50% Dextrose in Water 50 ML Syringe IV PRN (03:17)
--- NOTE | 2020-12-16 03:21 | PCM.SN.2 ---
- Free Text/Narrative Note: START OF DOCTOR ANTHONYMIBernardo HISTORY AND PHYSICAL / CONSULTATION NOTE Chief Complaint: "I felt tough" History of Present Illness: Patient is a 8-year-old female who presents with chief complaint of feeling generally unwell. Please note that the patient has a fair historian at best. Upon further questioning she indicates that she started feeling unwell approximately 24 hours prior to her presentation to the hospital. She states that she had onset of dysuria. She denies fever, rigors, nausea, vomiting, cough, wheeze, abdominal pain, diarrhea, myalgia, chest pain, dyspnea. In the emergency department she was found to be in acute on chronic renal sufficiency as well as having a urinary tract infection. She presents for further evaluation Surgical History: Cholecystectomy Family History: Cancer, stroke, diabetes, hypertension, hyperlipidemia Social History: Tobacco: Never Alcohol: Denies Caffeine: Coffee Drugs: Never Allergies: Ciprofloxacin, Crestor, Lipitor Code Status: DNR, DNI Pertinent Laboratory Results / Pertinent Radiology Results / Pertinent Diagnostic Results / Pertinent Vital Signs: Blood pressure pending input to the EMR/HR system, pulse 87, respiration 26, temperature 100 degrees, 90% 2 L, potassium 5.6, creatinine 2.96, magnesium 1.7, alkaline phosphatase 139, AST 50, platelet count 93,000 Physical Examination: General: -Alert -No acute distress -No dyspnea -No tachypnea -Morbidly obese Head: -Atraumatic -Normocephalic Eyes: -Pupils equally round and reactive to light and accommodation -Extraocular muscles intact Neurological: -Cranial nerves II-XII intact Neck: -No jugular venous distention -No thyromegaly -No cervical lymphadenopathy Heart: -Regular rate -Regular rhythm -No murmurs -No gallops -No rubs Lungs: -No wheeze -No rhonchi -No rales Abdomen: -Normal bowel sounds in all four quadrants -No rebound -No guarding -No tenderness Extremities: -2/4 pulse in all four extremities -No clubbing -No cyanosis -No edema -No calf tenderness present bilaterally -Negative Homans sign bilaterally Musculoskeletal: -5/5 bilateral upper extremity strength -5/5 bilateral lower extremity strength -Sensorium of bilateral upper extremities are equal and intact -Sensorium of bilateral lower extremities are equal and intact Additional Details / Additional Findings / Exceptions / Miscellaneous: Assessment / Plan: Urinary tract infection. Rocephin 1 g IV daily Acute on chronic kidney disease. Baseline creatinine estimated be approximately 1.6 however it has been a year or 2 since it was last assessed at this facility. Will monitor creatinine intermittently. IV normal saline 75 mils per hour Hypomagnesemia. Will monitor magnesium levels intermittently and supplement as necessary Hyperkalemia. Will monitor potassium levels intermittently and correct as necessary Arthritis Thrombocytopenia. We will monitor platelet count intermittently CHF. Metoprolol 200 mg p.o. twice daily Coronary artery disease, status post ID. Metoprolol 200 mg p.o. twice daily plus Imdur 60 mg p.o. twice daily Diabetes. Lantus 10 units subcutaneously daily plus insulin aspartate 14 units subcutaneously 3 times daily with meals. Will check fasting glucose before every meal and at bedtime and provide insulin sign scale Hyperlipidemia Hypertension. Norvasc 5 mg p.o. twice daily plus metoprolol 200 mg p.o. twice daily plus Imdur 60 mg p.o. twice daily Obesity. Patient becomes regarding lifestyle modification History of vitamin B12 deficiency History nephrolithiasis Depression History of Lara's palsy Query left renal mass. Patient will need to schedule renal ultrasound with her primary care physician or provider upon discharge Diverticulosis DVT prophylaxis. Heparin 5000 units subcutaneously every 12 hours Disposition: Anticipate discharge in 24 to 48 hours END OF DOCTOR EMAMIS HISTORY AND PHYSICAL / CONSULTATION NOTE
[2020-12-16] MEDS: Heparin Sodium 5,000 Units/ML Vial SUBCUT SCH ×3 (03:34→22:34)
[2020-12-16] MEDS ORDERED: Insulin Glarg,Human.Rec.Analog 100 Unit/ML SUBCUT SCH (06:00)
[2020-12-16] MEDS: Acetaminophen 325 MG Tab PO PRN (07:22)
--- NOTE | 2020-12-16 07:47 | PCM.SN.2 ---
- Free Text/Narrative Note: START OF DOCTOR EMAMIS PROGRESS NOTE Subjective: The patient indicates that she is still feeling "tough". She denies fever, rigors, nausea, vomiting, cough, wheeze, abdominal pain, chest pain, dyspnea. Upon further questioning she indicates that she feels lethargic. I explained to the patient her current medical condition and plan of care and I have answered all of her questions Objective: General: -Alert -No acute distress -No dyspnea -No tachypnea -Morbidly obese Heart: -Regular rate -Regular rhythm -No murmurs -No gallops -No rubs Lungs: -No wheeze -No rhonchi -No rales Abdomen: -Normal bowel sounds in all four quadrants -No rebound -No guarding -No tenderness Extremities: -2/4 pulse in all four extremities -No clubbing -No cyanosis -Bipedal edema present Additional Details / Additional Findings / Exceptions / Miscellaneous: Pertinent Laboratory Results / Pertinent Radiology Results / Pertinent Diagnostic Results / Pertinent Vital Signs: Temperature 100 degrees otherwise vital signs stable Assessment / Plan: Urinary tract infection. Rocephin 1 g IV daily Acute on chronic kidney disease. Baseline creatinine estimated be approximately 1.6 however it has been a year or 2 since it was last assessed at this facility. Will monitor creatinine intermittently. IV normal saline 75 mils per hour Hypomagnesemia. Will monitor magnesium levels intermittently and supplement as necessary Hyperkalemia. Will monitor potassium levels intermittently and correct as necessary Arthritis Thrombocytopenia. We will monitor platelet count intermittently CHF. Metoprolol 200 mg p.o. twice daily Coronary artery disease, status post CT. Metoprolol 200 mg p.o. twice daily plus Imdur 60 mg p.o. twice daily Diabetes. Lantus 10 units subcutaneously daily plus insulin aspartate 14 units subcutaneously 3 times daily with meals. Will check fasting glucose before every meal and at bedtime and provide insulin sign scale Hyperlipidemia Hypertension. Norvasc 5 mg p.o. twice daily plus metoprolol 200 mg p.o. twice daily plus Imdur 60 mg p.o. twice daily Obesity. Patient becomes regarding lifestyle modification History of vitamin B12 deficiency History nephrolithiasis Depression History of Lara's palsy Query left renal mass. Patient will need to schedule renal ultrasound with her primary care physician or provider upon discharge Diverticulosis DVT prophylaxis. Heparin 5000 units subcutaneously every 12 hours Disposition: Anticipate discharge on December 17, 2020 END OF DOCTOR EMAMIS PROGRESS NOTE
[2020-12-16] MEDS: Insulin Lispro 100 Units/ML 3 ML Vial SUBCUT SCH ×5 (08:28→22:30)
[2020-12-16] MEDS: Insulin Glarg,Human.Rec.Analog 100 Unit/ML SUBCUT SCH (08:29)
[2020-12-16] MEDS: Metoprolol Tartrate 50 MG Tab PO SCH ×2 (08:30→22:30)
[2020-12-16] MEDS: Isosorbide Mononitrate 60 MG Tab.ER PO SCH ×2 (08:30→22:29)
[2020-12-16] MEDS: amLODIPine 5 MG Tab PO SCH ×2 (08:31→22:30)
--- NOTE | 2020-12-16 13:14 | CR ---
EXAMINATION: Chest 1V Frontal SEX: Female AGE: 75 years CLINICAL HISTORY: 75-year-old obese female complaining of increased SOB (shortness of breath). INTERPRETATION: 1. Generalized relative mild increase pulmonary venous congestion/cephalization since 15 Dec 2020 exam. 2. Left ventriculomegaly accentuated by less than optimal inspiratory effort this patient with pickwickian body habitus. 3.No dependent pleural fluid accumulation (effusions). 4. Patchy new right lower lobe atelectasis or infiltrate. 5. No lung mass or hilar lymphadenopathy. 6. No pneumothorax or pneumomediastinum. No free subdiaphragmatic air. CONCLUSION: Generally poor inspiration. Subtle changes suggesting CHF. BNP? Bodyweight? EKG?
[2020-12-16] MEDS: Magnesium Sulfate/Water 2 GM/50 ML BAG IV SCH ×2 (13:55→17:05)
[2020-12-16 14:05] LABS: ANION GAP 21.8 mEq/L (7-13)
[2020-12-16] MEDS: Albumin 25% 12.5 GM/50 ML BAG IV SCH ×2 (16:13→22:19)
[2020-12-16 19:40] LABS: ANION GAP 16.2 mEq/L (7-13)
[2020-12-16] MEDS ORDERED: Pramipexole 0.125 MG Tab PO PRN (22:41)
[2020-12-16] MEDS: Sodium Chloride 0.9% 10 ML Syringe FLUSH PRN (22:53)
[2020-12-17] MEDS: Sodium Chloride 0.9% 10 ML Syringe FLUSH PRN (05:22)
[2020-12-17] MEDS: cefTRIAXone 1 GM in Sodium Chloride 0.9% 50 ML IV SCH (05:23)
[2020-12-17] MEDS: Albumin 25% 12.5 GM/50 ML BAG IV SCH (06:03)
[2020-12-17 07:05] LABS: ANION GAP 17.1 mEq/L (7-13)
--- NOTE | 2020-12-17 07:35 | PCM.SN.2 ---
- Free Text/Narrative Note: START OF DOCTOR EYAL PROGRESS NOTE Subjective: The patient Anthony that she is feeling much better overall. Overnight she denies fever, rigors, nausea, vomiting, cough, wheeze, abdominal pain, chest pain, or any other constitutional complaints. I explained to the patient her current medical condition and plan of care and I have answered all of her questions Objective: General: -Alert -No acute distress -No dyspnea -No tachypnea -Morbidly obese Heart: -Regular rate -Regular rhythm -No murmurs -No gallops -No rubs Lungs: -No wheeze -No rhonchi -Trace bibasilar rales Abdomen: -Normal bowel sounds in all four quadrants -No rebound -No guarding -No tenderness Extremities: -2/4 pulse in all four extremities -No clubbing -No cyanosis -Bipedal edema present Additional Details / Additional Findings / Exceptions / Miscellaneous: Pertinent Laboratory Results / Pertinent Radiology Results / Pertinent Diagnostic Results / Pertinent Vital Signs: Patient saturating 90% on 2 L, creatinine 2.71, ALT 76, alkaline phosphatase 119 Assessment / Plan: Urinary tract infection. Rocephin 1 g IV daily Gram-negative hoa bacteremia. Speciation pending. Rocephin 1 g IV daily Acute on chronic kidney disease. Baseline creatinine estimated be approximately 1.6 however it has been a year or 2 since it was last assessed at this facility. Will monitor creatinine intermittently. Albumin 25 g IV every 8 hours. Abdominal ultrasound pending Hyperphosphatemia. Monitor phosphorus levels intermittently Transaminitis. Will monitor LFTs periodically with CMP. Abdominal ultrasound pending Hypomagnesemia. Will monitor magnesium levels intermittently and supplement as necessary Hyperkalemia. Will monitor potassium levels intermittently and correct as necessary Arthritis Thrombocytopenia. We will monitor platelet count intermittently CHF. Metoprolol 200 mg p.o. twice daily Coronary artery disease, status post [place]. Metoprolol 200 mg p.o. twice daily plus Imdur 60 mg p.o. twice daily Diabetes. Lantus 10 units subcutaneously daily plus insulin aspartate 14 units subcutaneously 3 times daily with meals. Will check fasting glucose before every meal and at bedtime and provide insulin sign scale Hyperlipidemia Hypertension. Norvasc 5 mg p.o. twice daily plus metoprolol 200 mg p.o. twice daily plus Imdur 60 mg p.o. twice daily Obesity. Patient becomes regarding lifestyle modification History of vitamin B12 deficiency History nephrolithiasis Depression History of Lara's palsy Query left renal mass. Patient will need to schedule renal ultrasound with her primary care physician or provider upon discharge. Abdominal ultrasound pending Diverticulosis DVT prophylaxis. Heparin 5000 units subcutaneously every 12 hours Disposition: The patient will be a candidate for discharge once her creatinine is closer to her baseline of approximately 1.6 or stops improving. We will also need to wean the patient off of supplemental oxygen END OF DOCTOR NIKIS PROGRESS NOTE
[2020-12-17] MEDS: Metoprolol Tartrate 50 MG Tab PO SCH ×2 (10:36→23:36)
[2020-12-17] MEDS: amLODIPine 5 MG Tab PO SCH ×2 (10:37→23:35)
[2020-12-17] MEDS: Insulin Glarg,Human.Rec.Analog 100 Unit/ML SUBCUT SCH (10:38)
[2020-12-17] MEDS: Isosorbide Mononitrate 60 MG Tab.ER PO SCH ×2 (10:38→23:35)
[2020-12-17] MEDS: Heparin Sodium 5,000 Units/ML Vial SUBCUT SCH ×2 (10:39→23:41)
[2020-12-17] MEDS: Insulin Lispro 100 Units/ML 3 ML Vial SUBCUT SCH ×6 (10:39→23:37)
--- NOTE | 2020-12-17 13:39 | US ---
EXAMINATION: Abdomen Comp SEX: Female AGE: 75 years CLINICAL HISTORY: 75-year-old obese female with abnormal transaminase and acute renal failure. Interpretation: Note: Technically difficult exam limited by patient body habitus and excessive bowel gas. Cholecystectomy. Homogeneously echodense fatty appearing liver without discrete intrahepatic echogenic solid or hypoechoic cystic lesion (partially obscured by gas). No hepatic duct dilatation. Normal kidneys bilaterally. Specifically, no sign of obstructive uropathy. Pancreas obscured by gas. No ascites. CONCLUSION: No sign of obstructive uropathy or hepatocellular lesion.
[2020-12-17] MEDS: Albumin 25% 25 GM in Premix Bag 1 BAG IV SCH ×2 (14:35→22:24)
[2020-12-17] MEDS ORDERED: Insulin Glarg,Human.Rec.Analog 100 Unit/ML SUBCUT SCH (21:00)
[2020-12-18] MEDS: Sodium Chloride 0.9% 10 ML Syringe FLUSH PRN (05:06)
[2020-12-18] MEDS: cefTRIAXone 1 GM in Sodium Chloride 0.9% 50 ML IV SCH (05:06)
[2020-12-18] MEDS: Acetaminophen 325 MG Tab PO PRN (05:13)
[2020-12-18 06:55] LABS: ANION GAP 17.7 mEq/L (7-13)
--- NOTE | 2020-12-18 07:36 | PCM.SN.2 ---
- Free Text/Narrative Note: START OF DOCTOR ANTHONYMIBernardo PROGRESS NOTE Subjective: The patient endorses no complaints at this time aside from minor left flank pain. She denies fever, rigors, nausea, vomiting, cough, wheeze, abdominal pain, chest pain, dyspnea, or any other constitutional complaints. I explained to the patient her current medical condition and plan of care and I have answered all of her questions Objective: General: -Alert -No acute distress -No dyspnea -No tachypnea -Morbidly obese Heart: -Regular rate -Regular rhythm -No murmurs -No gallops -No rubs Lungs: -No wheeze -No rhonchi -Trace bibasilar rales Abdomen: -Normal bowel sounds in all four quadrants -No rebound -No guarding -No tenderness Extremities: -2/4 pulse in all four extremities -No clubbing -No cyanosis -Bipedal edema present Additional Details / Additional Findings / Exceptions / Miscellaneous: Pertinent Laboratory Results / Pertinent Radiology Results / Pertinent Diagnostic Results / Pertinent Vital Signs: Blood pressure 137/56, creatinine 1.93 Assessment / Plan: Urinary tract infection. Urine culture positive for Klebsiella pneumonia. Rocephin 1 g IV daily Klebsiella pneumonia bacteremia. Speciation pending. Rocephin 1 g IV daily Acute on chronic kidney disease. Baseline creatinine estimated be approximately 1.6 however it has been a year or 2 since it was last assessed at this facility. Will monitor creatinine intermittently. Albumin 25 g IV every 8 hours plus IV normal saline at 75 mL's per hour. Abdominal ultrasound overall unremarkable Hyperphosphatemia. Monitor phosphorus levels intermittently Transaminitis. Will monitor LFTs periodically with CMP. Abdominal ultrasound overall unremarkable Hypomagnesemia. Will monitor magnesium levels intermittently and supplement as necessary Hyperkalemia. Will monitor potassium levels intermittently and correct as necessary Arthritis Thrombocytopenia. We will monitor platelet count intermittently CHF. Metoprolol 200 mg p.o. twice daily Coronary artery disease, status post CT. Metoprolol 200 mg p.o. twice daily plus Imdur 60 mg p.o. twice daily Diabetes. Lantus 10 units subcutaneously daily plus insulin aspartate 14 units subcutaneously 3 times daily with meals. Will check fasting glucose before every meal and at bedtime and provide insulin sign scale Hyperlipidemia Hypertension. Norvasc 5 mg p.o. twice daily plus metoprolol 200 mg p.o. twice daily plus Imdur 60 mg p.o. twice daily Obesity. Patient becomes regarding lifestyle modification History of vitamin B12 deficiency History nephrolithiasis Depression History of Lara's palsy Query left renal mass. Patient will need to schedule renal ultrasound with her primary care physician or provider upon discharge. Abdominal ultrasound pending Diverticulosis DVT prophylaxis. Heparin 5000 units subcutaneously every 12 hours Disposition: The patient will be a candidate for discharge once her creatinine is closer to her baseline of approximately 1.6 or stops improving. We will recheck patient's creatinine at 4 PM on this date December 18, 2020 and if her creatinine is closer to her baseline she will be a candidate for discharge END OF DOCTOR EMAMIS PROGRESS NOTE
[2020-12-18] MEDS ORDERED: Sodium Chloride 0.9% 1,000 ML IV SCH (07:45)
[2020-12-18] MEDS: Metoprolol Tartrate 50 MG Tab PO SCH (08:55)
[2020-12-18] MEDS: Isosorbide Mononitrate 60 MG Tab.ER PO SCH (08:56)
[2020-12-18] MEDS: Heparin Sodium 5,000 Units/ML Vial SUBCUT SCH (08:56)
[2020-12-18] MEDS: amLODIPine 5 MG Tab PO SCH (08:56)
[2020-12-18] MEDS: Insulin Lispro 100 Units/ML 3 ML Vial SUBCUT SCH ×3 (09:00→12:50)
[2020-12-18] MEDS ORDERED: Calcitriol 0.25 MCG Cap PO SCH (13:30)
[2020-12-18 13:48] LABS: ANION GAP 16.6 mEq/L (7-13)
--- NOTE | 2020-12-18 14:06 | PCM.SN.2 ---
- Free Text/Narrative Note: START OF DOCTOR EMAMIS DISCHARGE SUMMARY Date of Admission: December 16, 2020 Date of Discharge: 2:03 PM on December 18, 2020 Primary Diagnosis: Urinary tract infection for which cultures positive for Klebsiella pneumonia Secondary Diagnosis: Klebsiella pneumonia bacteremia Acute on chronic kidney disease with baseline creatinine approximately 1.6-2 Hyperphosphatemia Transaminitis Hypomagnesemia, status post treatment Hyperkalemia, status post treatment Arthritis Thrombocytopenia CHF Coronary artery disease, status post [place] Diabetes Hyperlipidemia Hypertension Obesity History of vitamin B12 deficiency History of nephrolithiasis Depression History of Lara's palsy Documented history of left renal mass which was not demonstrated on abdominal ultrasound during this hospitalization Diverticulosis Hyperparathyroidism, secondary to chronic kidney disease Consultations: None Condition on Discharge: Stable Disposition: The patient will be advised to follow-up with nephrology within 2 weeks of discharge for evaluation of her chronic kidney disease The patient is advised to follow-up with her primary care physician or provider 7 to 10 days post discharge for posthospitalization evaluation Discharge Medications: Bactrim 400/80 mg 1 tab p.o. twice daily. Quantity 14. 0 refills Vitamin B6 100 mg p.o. daily Lantus 10 units subcutaneously nightly Insulin aspartate 14 unit subcutaneously with lunch and 14 units subcutaneously with dinner [place] 5/305 mg p.o. nightly [place] 5/325 mg p.o. every 4 hours as needed pain Folic acid 0.4 mg p.o. daily Vitamin B12 1000 mcg intramuscularly monthly Aspirin 81 mg p.o. daily Mirapex 0.25 mg p.o. nightly Metoprolol 200 mg p.o. twice daily Imdur 60 mg p.o. twice daily Norvasc 5 mg p.o. twice daily Calcitriol 0.25 mg p.o. daily END OF DOCTOR EMAMIS DISCHARGE SUMMARY
[2020-12-18] MEDS: Albumin 25% 25 GM in Premix Bag 1 BAG IV SCH (15:43)
== END 2020-12-18 15:05 | DRG 683 ==
LOC: DL.ED 22:59 → DL.MS 12-16 02:08
PROVIDERS: ADMIT Internal Medicine; ATTEND Internal Medicine
DX: N17.9 Acute kidney failure, unspecified (principal); E10.65 Type 1 diabetes mellitus with hyperglycemia; N30.00 Acute cystitis without hematuria; I10 Essential (primary) hypertension; I13.0 Hypertensive heart and chronic kidney disease with heart failure and stage 1 through stage 4 chronic kidney disease, or unspecified chronic kidney disease; Z68.43 Body mass index [BMI] 50.0-59.9, adult; N18.5 Chronic kidney disease, stage 5; I50.9 Heart failure, unspecified; Z66 Do not resuscitate; E83.42 Hypomagnesemia; E87.5 Hyperkalemia; D69.6 Thrombocytopenia, unspecified; I25.10 Atherosclerotic heart disease of native coronary artery without angina pectoris; E11.22 Type 2 diabetes mellitus with diabetic chronic kidney disease; E78.5 Hyperlipidemia, unspecified; E66.9 Obesity, unspecified; E53.8 Deficiency of other specified B group vitamins; M17.0 Bilateral primary osteoarthritis of knee; R74.01 Elevation of levels of liver transaminase levels; F32.9 Major depressive disorder, single episode, unspecified; K57.90 Diverticulosis of intestine, part unspecified, without perforation or abscess without bleeding; E78.00 Pure hypercholesterolemia, unspecified; Z20.822 Contact with and (suspected) exposure to COVID-19; E11.65 Type 2 diabetes mellitus with hyperglycemia; B96.1 Klebsiella pneumoniae [K. pneumoniae] as the cause of diseases classified elsewhere; E83.39 Other disorders of phosphorus metabolism; Z79.82 Long term (current) use of aspirin; Z90.49 Acquired absence of other specified parts of digestive tract; Z88.1 Allergy status to other antibiotic agents; Z88.8 Allergy status to other drugs, medicaments and biological substances; I25.2 Old myocardial infarction; Z87.442 Personal history of urinary calculi; Z79.4 Long term (current) use of insulin; Z79.899 Other long term (current) drug therapy
CPT/HCPCS: 36415; 71045; 76700; 80048; 80053; 81001; 82570; 82947; 83605; 83735; 83880; 83970; 84100; 84300; 84484; 85025; 87040; 87077; 87086; 87088; 87186; 93010; 97110-GP; 97161-GP; 97166-GO; 97530-GO; 97535-GO; 99283; 99285-25; A9270-GY; J0696; J1644; J1815-GY; J3475; J7030; P9047; U0002

== ENCOUNTER 2022-03-03 17:26 | Inpatient (IN) | payer MEDICARE, MEDICAID ==
[2022-03-03 17:53] LABS: ANION GAP 14.4 mEq/L (7-13)
[2022-03-03] MEDS ORDERED: Bisacodyl 5 MG Tab PO PRN (22:58)
[2022-03-03] MEDS ORDERED: Albuterol/Ipratropium 3.0-0.5 MG/3 ML Neb Soln NEB PRN (22:58)
[2022-03-03] MEDS ORDERED: Polyethylene Glycol 3350 Powder 17 GM Packet PO PRN (22:58)
[2022-03-03] MEDS ORDERED: HYDROmorphone 0.5 MG/0.5 ML Syringe IVPUSH PRN (22:58)
[2022-03-03] MEDS ORDERED: Ondansetron 4 MG/2 ML SDV IVPUSH PRN (22:58)
[2022-03-03] MEDS ORDERED: Acetaminophen 325 MG Tab PO PRN (22:58)
[2022-03-03] MEDS ORDERED: Docusate Sodium 100 MG Cap PO PRN (22:58)
[2022-03-03] MEDS: Nystatin Topical Powder 30 GM Bottle TOP SCH (23:41)
[2022-03-04] MEDS ORDERED: Magnesium Hydroxide 400 MG/5 ML Susp 30 ML Cup PO PRN (00:16)
[2022-03-04] MEDS ORDERED: Benzonatate 100 MG Cap PO PRN (00:16)
[2022-03-04] MEDS: Heparin Sodium 5,000 Units/ML Vial SUBCUT SCH ×3 (05:05→22:06)
[2022-03-04 07:10] LABS: ANION GAP 15.1 mEq/L (7-13)
[2022-03-04] MEDS ORDERED: Isosorbide Mononitrate 60 MG Tab.ER PO SCH (09:00)
[2022-03-04] MEDS: Aspirin 81 MG Tab.EC PO SCH (09:33)
[2022-03-04] MEDS: Acetaminophen/HYDROcodone 325-10 MG Tab PO PRN ×2 (09:33→19:38)
[2022-03-04] MEDS: Vitamin B6-pyridOXINE 100 MG Tab PO SCH (09:33)
[2022-03-04] MEDS: Bacitracin/Neomycin/Polymyxin B Oint 28.4 GM Tube TOP SCH ×2 (09:34→22:10)
[2022-03-04] MEDS: amLODIPine 5 MG Tab PO SCH (09:37)
[2022-03-04] MEDS: Metoprolol Tartrate 50 MG Tab PO SCH ×2 (09:38→22:01)
[2022-03-04] MEDS: Nystatin Topical Powder 30 GM Bottle TOP SCH ×4 (09:46→23:05)
[2022-03-04] MEDS ORDERED: 50% Dextrose in Water 50 ML Syringe IVPUSH PRN (12:25)
[2022-03-04] MEDS ORDERED: Glucagon,Human Recombinant 1 MG Vial IM PRN (12:25)
[2022-03-04] MEDS ORDERED: FOLIC ACID 0.4 MG PO SCH (15:30)
[2022-03-04] MEDS: Insulin Lispro 100 Units/ML 3 ML Vial SUBCUT SCH (17:34)
[2022-03-04] MEDS: FOLIC ACID 0.4 MG PO SCH (18:22)
[2022-03-04] MEDS: Sodium Chloride 0.9% 1,000 ML IV SCH (19:03)
[2022-03-04] MEDS: Pramipexole 0.125 MG Tab PO SCH (22:02)
[2022-03-04] MEDS: Isosorbide Mononitrate 30 MG Tab.ER PO SCH (22:03)
[2022-03-04] MEDS: Pantoprazole 40 MG Tab.CR PO SCH (22:03)
[2022-03-04] MEDS: CALMOSEPTINE TOP SCH ×2 (22:09→23:03)
[2022-03-05] MEDS: Acetaminophen/HYDROcodone 325-10 MG Tab PO PRN ×2 (03:54→20:19)
[2022-03-05] MEDS: Heparin Sodium 5,000 Units/ML Vial SUBCUT SCH ×3 (06:13→21:52)
[2022-03-05 07:07] LABS: ANION GAP 14.5 mEq/L (7-13)
[2022-03-05] MEDS: Insulin Lispro 100 Units/ML 3 ML Vial SUBCUT SCH ×3 (07:54→17:34)
[2022-03-05] MEDS: Aspirin 81 MG Tab.EC PO SCH (08:57)
[2022-03-05] MEDS: Calcitriol 0.25 MCG Cap PO SCH (08:58)
[2022-03-05] MEDS: Vitamin B6-pyridOXINE 100 MG Tab PO SCH (08:58)
[2022-03-05] MEDS: amLODIPine 5 MG Tab PO SCH (09:04)
[2022-03-05] MEDS: Isosorbide Mononitrate 30 MG Tab.ER PO SCH ×2 (09:06→20:20)
[2022-03-05] MEDS: Insulin Glarg,Human.Rec.Analog 100 Unit/ML SUBCUT SCH ×2 (09:06→20:20)
[2022-03-05] MEDS: Metoprolol Tartrate 50 MG Tab PO SCH ×2 (09:06→20:22)
[2022-03-05] MEDS: Nystatin Topical Powder 30 GM Bottle TOP SCH ×4 (09:09→21:51)
[2022-03-05] MEDS: FOLIC ACID 0.4 MG PO SCH (09:10)
[2022-03-05] MEDS: Bacitracin/Neomycin/Polymyxin B Oint 28.4 GM Tube TOP SCH ×2 (09:10→21:51)
[2022-03-05] MEDS: CALMOSEPTINE TOP SCH ×2 (09:11→21:51)
[2022-03-05] MEDS: Pantoprazole 40 MG Tab.CR PO SCH (20:22)
[2022-03-05] MEDS: Pramipexole 0.125 MG Tab PO SCH (20:22)
[2022-03-06] MEDS: Sodium Chloride 0.9% 1,000 ML IV SCH (00:08)
[2022-03-06] MEDS: Heparin Sodium 5,000 Units/ML Vial SUBCUT SCH ×3 (06:03→20:59)
[2022-03-06 07:19] LABS: ANION GAP 13.9 mEq/L (7-13)
[2022-03-06] MEDS: Acetaminophen 500 MG Tab PO PRN ×2 (07:40→21:02)
[2022-03-06] MEDS ORDERED: Dexamethasone 4 MG/ML SDV IVPUSH ONE (08:48)
[2022-03-06] MEDS ORDERED: Famotidine 20 MG/2 ML SDV IVPUSH ONE (08:49)
[2022-03-06] MEDS ORDERED: diphenhydrAMINE 50 MG/ML SDV IVPUSH ONE (08:49)
[2022-03-06] MEDS: amLODIPine 5 MG Tab PO SCH (08:53)
[2022-03-06] MEDS: Vitamin B6-pyridOXINE 100 MG Tab PO SCH (08:53)
[2022-03-06] MEDS: Metoprolol Tartrate 50 MG Tab PO SCH ×2 (08:53→20:58)
[2022-03-06] MEDS: Isosorbide Mononitrate 30 MG Tab.ER PO SCH ×2 (08:54→20:57)
[2022-03-06] MEDS: Aspirin 81 MG Tab.EC PO SCH (08:54)
[2022-03-06] MEDS: Insulin Lispro 100 Units/ML 3 ML Vial SUBCUT SCH ×3 (08:57→17:27)
[2022-03-06] MEDS: CALMOSEPTINE TOP SCH ×2 (08:58→22:21)
[2022-03-06] MEDS ORDERED: Ciprofloxacin in D5W 200 MG in Premix Bag 1 BAG IV SCH ×2 (09:00)
[2022-03-06] MEDS: Saccharomyces Boulardii (Probiotic) 250 MG Cap PO SCH (09:02)
[2022-03-06] MEDS: Ciprofloxacin in D5W 200 MG in Premix Bag 1 BAG IV SCH ×2 (09:55)
[2022-03-06] MEDS: FOLIC ACID 0.4 MG PO SCH (10:00)
[2022-03-06] MEDS: Nystatin Topical Powder 30 GM Bottle TOP SCH ×2 (10:00→15:46)
[2022-03-06] MEDS: Bacitracin/Neomycin/Polymyxin B Oint 28.4 GM Tube TOP SCH ×2 (10:01→22:21)
[2022-03-06] MEDS: Insulin Glarg,Human.Rec.Analog 100 Unit/ML SUBCUT SCH ×2 (10:03→20:58)
[2022-03-06] MEDS: Acetaminophen/HYDROcodone 325-10 MG Tab PO PRN (19:57)
[2022-03-06] MEDS: Pantoprazole 40 MG Tab.CR PO SCH (20:57)
[2022-03-06] MEDS: Pramipexole 0.125 MG Tab PO SCH (20:59)
[2022-03-07] MEDS: Nystatin Topical Powder 30 GM Bottle TOP SCH ×4 (01:59→23:09)
[2022-03-07] MEDS: Heparin Sodium 5,000 Units/ML Vial SUBCUT SCH ×3 (06:21→23:16)
[2022-03-07 07:20] LABS: ANION GAP 14.9 mEq/L (7-13)
[2022-03-07] MEDS: Insulin Lispro 100 Units/ML 3 ML Vial SUBCUT SCH ×3 (08:11→17:03)
[2022-03-07] MEDS: Ciprofloxacin in D5W 200 MG in Premix Bag 1 BAG IV SCH ×2 (08:21)
[2022-03-07] MEDS: Saccharomyces Boulardii (Probiotic) 250 MG Cap PO SCH (08:24)
[2022-03-07] MEDS: Aspirin 81 MG Tab.EC PO SCH (08:24)
[2022-03-07] MEDS: amLODIPine 5 MG Tab PO SCH (08:24)
[2022-03-07] MEDS: Calcitriol 0.25 MCG Cap PO SCH (08:24)
[2022-03-07] MEDS: Vitamin B6-pyridOXINE 100 MG Tab PO SCH (08:25)
[2022-03-07] MEDS: Metoprolol Tartrate 50 MG Tab PO SCH ×2 (08:26→20:48)
[2022-03-07] MEDS: Isosorbide Mononitrate 30 MG Tab.ER PO SCH ×2 (08:26→20:47)
[2022-03-07] MEDS: Insulin Glarg,Human.Rec.Analog 100 Unit/ML SUBCUT SCH ×2 (08:27→20:48)
[2022-03-07] MEDS: FOLIC ACID 0.4 MG PO SCH (08:29)
[2022-03-07] MEDS: CALMOSEPTINE TOP SCH ×2 (08:31→20:54)
[2022-03-07] MEDS: Bacitracin/Neomycin/Polymyxin B Oint 28.4 GM Tube TOP SCH ×2 (08:32→20:54)
[2022-03-07] MEDS ORDERED: Furosemide 40 MG Tab PO ONE (09:45)
[2022-03-07] MEDS: Acetaminophen 500 MG Tab PO PRN ×2 (16:11→20:49)
[2022-03-07] MEDS: Pramipexole 0.125 MG Tab PO SCH (20:50)
[2022-03-07] MEDS: Pantoprazole 40 MG Tab.CR PO SCH (20:50)
[2022-03-08] MEDS: Heparin Sodium 5,000 Units/ML Vial SUBCUT SCH ×3 (05:37→21:12)
[2022-03-08 07:26] LABS: ANION GAP 13.6 mEq/L (7-13)
[2022-03-08] MEDS: Insulin Lispro 100 Units/ML 3 ML Vial SUBCUT SCH ×3 (08:28→17:04)
[2022-03-08] MEDS: Insulin Glarg,Human.Rec.Analog 100 Unit/ML SUBCUT SCH ×2 (08:29→21:12)
[2022-03-08] MEDS: Furosemide 40 MG Tab PO SCH (08:31)
[2022-03-08] MEDS: Vitamin B6-pyridOXINE 100 MG Tab PO SCH (08:32)
[2022-03-08] MEDS: Saccharomyces Boulardii (Probiotic) 250 MG Cap PO SCH (08:32)
[2022-03-08] MEDS: Metoprolol Tartrate 50 MG Tab PO SCH ×2 (08:32→20:33)
[2022-03-08] MEDS: Lisinopril 10 MG Tab PO SCH (08:33)
[2022-03-08] MEDS: Aspirin 81 MG Tab.EC PO SCH (08:34)
[2022-03-08] MEDS: amLODIPine 5 MG Tab PO SCH (08:38)
[2022-03-08] MEDS: Isosorbide Mononitrate 30 MG Tab.ER PO SCH ×2 (08:41→20:35)
[2022-03-08] MEDS ORDERED: Ciprofloxacin in D5W 200 MG in Premix Bag 1 BAG IV SCH ×2 (10:00)
[2022-03-08] MEDS: Acetaminophen 500 MG Tab PO PRN ×2 (10:08→20:35)
[2022-03-08] MEDS: Bacitracin/Neomycin/Polymyxin B Oint 28.4 GM Tube TOP SCH ×2 (10:09→21:17)
[2022-03-08] MEDS: FOLIC ACID 0.4 MG PO SCH (10:09)
[2022-03-08] MEDS: Nystatin Topical Powder 30 GM Bottle TOP SCH ×3 (10:10→22:31)
[2022-03-08] MEDS: CALMOSEPTINE TOP SCH ×2 (10:11→21:18)
[2022-03-08] MEDS ORDERED: Glucagon,Human Recombinant 1 MG Vial IM PRN (11:45)
[2022-03-08] MEDS ORDERED: 50% Dextrose in Water 50 ML Syringe IVPUSH PRN (11:45)
[2022-03-08] MEDS: Pramipexole 0.125 MG Tab PO SCH (20:34)
[2022-03-08] MEDS: Pantoprazole 40 MG Tab.CR PO SCH (20:35)
[2022-03-09] MEDS: Heparin Sodium 5,000 Units/ML Vial SUBCUT SCH ×3 (05:42→21:44)
[2022-03-09] MEDS ORDERED: Metolazone 2.5 MG Tab PO SCH (08:30)
[2022-03-09] MEDS: Saccharomyces Boulardii (Probiotic) 250 MG Cap PO SCH (09:18)
[2022-03-09] MEDS: amLODIPine 5 MG Tab PO SCH (09:18)
[2022-03-09] MEDS: Furosemide 40 MG Tab PO SCH (09:19)
[2022-03-09] MEDS: Vitamin B6-pyridOXINE 100 MG Tab PO SCH (09:19)
[2022-03-09] MEDS: Calcitriol 0.25 MCG Cap PO SCH (09:20)
[2022-03-09] MEDS: Aspirin 81 MG Tab.EC PO SCH (09:21)
[2022-03-09] MEDS: Metoprolol Tartrate 50 MG Tab PO SCH ×2 (09:21→21:44)
[2022-03-09] MEDS: Lisinopril 10 MG Tab PO SCH (09:21)
[2022-03-09] MEDS: Isosorbide Mononitrate 30 MG Tab.ER PO SCH ×2 (09:22→21:43)
[2022-03-09] MEDS: FOLIC ACID 0.4 MG PO SCH (09:33)
[2022-03-09] MEDS ORDERED: Levofloxacin 500 MG Tab PO ONE ×2 (09:34→12:00)
[2022-03-09] MEDS: Insulin Glarg,Human.Rec.Analog 100 Unit/ML SUBCUT SCH ×2 (09:34→21:45)
[2022-03-09] MEDS: Insulin Lispro 100 Units/ML 3 ML Vial SUBCUT SCH ×3 (09:38→17:31)
[2022-03-09] MEDS: Nystatin Topical Powder 30 GM Bottle TOP SCH ×3 (11:10→21:47)
[2022-03-09] MEDS: Bacitracin/Neomycin/Polymyxin B Oint 28.4 GM Tube TOP SCH ×2 (11:11→21:47)
[2022-03-09] MEDS: CALMOSEPTINE TOP SCH ×2 (11:17→21:48)
[2022-03-09 12:32] LABS: ANION GAP 15.4 mEq/L (7-13)
[2022-03-09] MEDS: Pramipexole 0.125 MG Tab PO SCH (21:43)
[2022-03-09] MEDS: Pantoprazole 40 MG Tab.CR PO SCH (21:44)
[2022-03-10] MEDS: Heparin Sodium 5,000 Units/ML Vial SUBCUT SCH (05:14)
[2022-03-10] MEDS: CALMOSEPTINE TOP SCH (08:20)
[2022-03-10] MEDS: Nystatin Topical Powder 30 GM Bottle TOP SCH (08:21)
[2022-03-10] MEDS: Saccharomyces Boulardii (Probiotic) 250 MG Cap PO SCH (08:23)
[2022-03-10] MEDS: Aspirin 81 MG Tab.EC PO SCH (08:24)
[2022-03-10] MEDS: Lisinopril 10 MG Tab PO SCH (08:24)
[2022-03-10] MEDS: Metoprolol Tartrate 50 MG Tab PO SCH (08:25)
[2022-03-10] MEDS: Isosorbide Mononitrate 30 MG Tab.ER PO SCH (08:25)
[2022-03-10] MEDS: amLODIPine 5 MG Tab PO SCH (08:26)
[2022-03-10] MEDS: Vitamin B6-pyridOXINE 100 MG Tab PO SCH (08:27)
[2022-03-10] MEDS: Furosemide 40 MG Tab PO SCH (08:28)
[2022-03-10] MEDS: Bacitracin/Neomycin/Polymyxin B Oint 28.4 GM Tube TOP SCH (08:29)
[2022-03-10] MEDS: FOLIC ACID 0.4 MG PO SCH (08:31)
[2022-03-10] MEDS: Insulin Lispro 100 Units/ML 3 ML Vial SUBCUT SCH (08:32)
[2022-03-10] MEDS ORDERED: Insulin Glarg,Human.Rec.Analog 100 Unit/ML SUBCUT SCH (09:00)
[2022-03-10] MEDS ORDERED: Levofloxacin 250 MG Tab PO SCH (09:30)
[2022-03-18] MEDS ORDERED: Cyanocobalamin (Vitamin B12) 1,000 MCG/ML SDV SUBCUT SCH (09:00)
== END 2022-03-10 10:11 | DRG 638 ==
LOC: DL.ED 17:26 → DL.MS 22:15
PROVIDERS: ADMIT Internal Medicine; ATTEND Internal Medicine
DX: R63.5 Abnormal weight gain (principal); E11.649 Type 2 diabetes mellitus with hypoglycemia without coma; E46 Unspecified protein-calorie malnutrition; L03.317 Cellulitis of buttock; Z68.43 Body mass index [BMI] 50.0-59.9, adult; N39.0 Urinary tract infection, site not specified; I13.0 Hypertensive heart and chronic kidney disease with heart failure and stage 1 through stage 4 chronic kidney disease, or unspecified chronic kidney disease; I50.9 Heart failure, unspecified; N18.30 Chronic kidney disease, stage 3 unspecified; E78.5 Hyperlipidemia, unspecified; N17.9 Acute kidney failure, unspecified; I25.10 Atherosclerotic heart disease of native coronary artery without angina pectoris; D63.1 Anemia in chronic kidney disease; K76.0 Fatty (change of) liver, not elsewhere classified; E53.8 Deficiency of other specified B group vitamins; K57.30 Diverticulosis of large intestine without perforation or abscess without bleeding; E78.00 Pure hypercholesterolemia, unspecified; R32 Unspecified urinary incontinence; E87.5 Hyperkalemia; L89.329 Pressure ulcer of left buttock, unspecified stage; L89.319 Pressure ulcer of right buttock, unspecified stage; E11.65 Type 2 diabetes mellitus with hyperglycemia; R74.8 Abnormal levels of other serum enzymes; G25.81 Restless legs syndrome; B96.20 Unspecified Escherichia coli [E. coli] as the cause of diseases classified elsewhere; M17.0 Bilateral primary osteoarthritis of knee; I70.0 Atherosclerosis of aorta; M51.36 Other intervertebral disc degeneration, lumbar region; M51.34 Other intervertebral disc degeneration, thoracic region; N18.9 Chronic kidney disease, unspecified; E66.01 Morbid (severe) obesity due to excess calories; L98.8 Other specified disorders of the skin and subcutaneous tissue; E11.22 Type 2 diabetes mellitus with diabetic chronic kidney disease; Z87.442 Personal history of urinary calculi; Z88.8 Allergy status to other drugs, medicaments and biological substances; Z79.82 Long term (current) use of aspirin; Z88.1 Allergy status to other antibiotic agents; Z79.4 Long term (current) use of insulin; Z86.19 Personal history of other infectious and parasitic diseases; Z90.49 Acquired absence of other specified parts of digestive tract; Z79.899 Other long term (current) drug therapy; Z20.822 Contact with and (suspected) exposure to COVID-19
CPT/HCPCS: 36415; 51702; 71045; 80048; 80053; 81001; 82043; 82947; 83605; 83735; 83880; 83930; 83935; 84133; 84300; 84484; 85025; 85027; 85379; 85610; 85651; 85730; 86140; 87040; 87070; 87077; 87081; 87086; 87088; 87186; 87205; 93005; 97110-GP; 97161-GP; 97166-GO; 97530-GO; 99284; 99285; A9270-GY; J0744; J1100; J1200; J1644; J1815-GY; J3490; J7030; J7620-GY; U0002

== ENCOUNTER 2022-08-08 21:15 | Emergency (ER) | payer MEDICARE, MEDICAID ==
[2022-08-08] MEDS ORDERED: Sodium Chloride 0.9% 10 ML Syringe FLUSH PRN (22:08)
[2022-08-08 22:18] LABS: CORONAVIRUS COVID-19 NAA NEGATIVE (NEGATIVE); RESPIRATORY SYNCYTIAL VIR NAA NEGATIVE (NEGATIVE)
[2022-08-08 22:42] LABS: ANION GAP 10.1 mEq/L (7-13)
[2022-08-08] MEDS ORDERED: Potassium Chloride 10 MEQ Tab.ER PO ONE (23:31)
[2022-08-08] MEDS ORDERED: Levofloxacin 500 MG Tab PO ONE (23:31)
[2022-08-08] MEDS ORDERED: Levofloxacin 500 MG Tab ONE (23:45)
== END 2022-08-09 00:13 ==
LOC: DL.ED 21:15
DX: T83.511A Infection and inflammatory reaction due to indwelling urethral catheter, initial encounter (principal); N39.0 Urinary tract infection, site not specified; I11.0 Hypertensive heart disease with heart failure; I50.9 Heart failure, unspecified; E78.00 Pure hypercholesterolemia, unspecified; E11.9 Type 2 diabetes mellitus without complications; E66.9 Obesity, unspecified; R91.8 Other nonspecific abnormal finding of lung field; Z88.8 Allergy status to other drugs, medicaments and biological substances; Z79.82 Long term (current) use of aspirin; Z79.4 Long term (current) use of insulin; Z79.899 Other long term (current) drug therapy; Z20.822 Contact with and (suspected) exposure to COVID-19; Z68.42 Body mass index [BMI] 45.0-49.9, adult
CPT/HCPCS: 0241U; 36415; 71045; 80053; 81001; 83605; 83735; 83880; 84145; 85025; 86140; 87040; 87076; 87086; 87088; 87186; 99284; A9270; J3490

== ENCOUNTER 2022-09-09 11:27 | Emergency (ER) | payer MEDICARE, MEDICAID ==
[2022-09-09] MEDS ORDERED: Sodium Chloride 0.9% 10 ML Syringe FLUSH PRN (11:57)
[2022-09-09 13:08] LABS: ANION GAP 12.2 mEq/L (7-13); CHLORIDE,CL 91 mmol/L (98-107); SODIUM,NA 133 mmol/L (136-145)
[2022-09-09 13:10] LABS: ESTIMATED GFR 26 mL/min (>=60)
[2022-09-09] MEDS ORDERED: VANCOmycin 1.5 GM/300 ML 1.5 GM in Premix Bag 1 BAG IV ONE (14:00)
== END 2022-09-09 15:19 ==
LOC: DL.ED 11:27
DX: M00.852 Arthritis due to other bacteria, left hip (principal); B96.89 Other specified bacterial agents as the cause of diseases classified elsewhere; I11.0 Hypertensive heart disease with heart failure; I50.9 Heart failure, unspecified; M19.90 Unspecified osteoarthritis, unspecified site; E11.9 Type 2 diabetes mellitus without complications; E66.9 Obesity, unspecified; Z68.42 Body mass index [BMI] 45.0-49.9, adult; Z88.8 Allergy status to other drugs, medicaments and biological substances; Z79.82 Long term (current) use of aspirin; Z79.4 Long term (current) use of insulin; Z79.899 Other long term (current) drug therapy
CPT/HCPCS: 36415; 80053; 81001; 83605; 85025; 86140; 87040; 87086; 87088; 87186; 96365; 99284; 99285-25; J3370; J3490

== ENCOUNTER 2022-10-01 17:24 | Emergency (ER) | payer MEDICARE, MEDICAID ==
[2022-10-01] MEDS ORDERED: Sodium Chloride 0.9% 10 ML Syringe FLUSH PRN (17:28)
[2022-10-01 18:10] LABS: ANION GAP 14.1 mEq/L (7-13)
== END 2022-10-01 22:02 | disposition home or self-care (01) ==
LOC: DL.ED 17:24
DX: M86.659 Other chronic osteomyelitis, unspecified thigh (principal); N73.9 Female pelvic inflammatory disease, unspecified; I11.0 Hypertensive heart disease with heart failure; I50.9 Heart failure, unspecified; E11.9 Type 2 diabetes mellitus without complications; E66.9 Obesity, unspecified; Z88.1 Allergy status to other antibiotic agents; Z88.8 Allergy status to other drugs, medicaments and biological substances; Z79.82 Long term (current) use of aspirin; Z79.899 Other long term (current) drug therapy; Z79.4 Long term (current) use of insulin; Z68.43 Body mass index [BMI] 50.0-59.9, adult
CPT/HCPCS: 36415; 74176; 80053; 81001; 83605; 83735; 85025; 86140; 87040; 87086; 99284; 99285; J3490

== ENCOUNTER 2022-10-02 10:22 | Inpatient (IN) | payer MEDICARE, MEDICAID ==
[2022-10-02 11:26] LABS: ANION GAP 12.1 mEq/L (7-13)
[2022-10-02 11:41] LABS: CORONAVIRUS COVID-19 NAA NEGATIVE (NEGATIVE); RESPIRATORY SYNCYTIAL VIR NAA NEGATIVE (NEGATIVE)
[2022-10-02] MEDS ORDERED: cefTRIAXone 2 GM Vial IVPUSH ONE (13:04)
[2022-10-02] MEDS ORDERED: Ondansetron 4 MG/2 ML SDV IVPUSH ONE (13:05)
[2022-10-02] MEDS: Sodium Chloride 0.9% 10 ML Syringe FLUSH PRN (13:22)
[2022-10-02] MEDS ORDERED: Polyethylene Glycol 3350 Powder 17 GM Packet PO PRN (15:21)
[2022-10-02] MEDS ORDERED: Bisacodyl 5 MG Tab PO PRN (15:21)
[2022-10-02] MEDS ORDERED: Magnesium Hydroxide 400 MG/5 ML Susp 30 ML Cup PO PRN (15:21)
[2022-10-02] MEDS ORDERED: HYDROmorphone 0.5 MG/0.5 ML Syringe IVPUSH PRN (15:21)
[2022-10-02] MEDS ORDERED: Albuterol/Ipratropium 3.0-0.5 MG/3 ML Neb Soln NEB PRN (15:21)
[2022-10-02] MEDS ORDERED: VANCOMYCIN IV SCH (15:30)
[2022-10-02] MEDS ORDERED: SODIUM CHLORIDE 0.9% IV SCH (15:30)
[2022-10-02] MEDS ORDERED: Glucagon,Human Recombinant 1 MG Vial IM PRN ×2 (15:35→19:18)
[2022-10-02] MEDS ORDERED: 50% Dextrose in Water 50 ML Syringe IVPUSH PRN ×2 (15:35→19:18)
[2022-10-02] MEDS ORDERED: Vancomycin 2 GM in Sodium Chloride 0.9% 500 ML IV ONE (15:45)
[2022-10-02] MEDS ORDERED: Sodium Chloride 0.9% 1,000 ML IV SCH (15:45)
[2022-10-02] MEDS ORDERED: Potassium Chloride 10 MEQ Tab.ER PO ONE (17:00)
[2022-10-02] MEDS ORDERED: Ertapenem 1 GM Vial IVPUSH SCH (18:00)
[2022-10-02] MEDS: Insulin Lispro 100 Units/ML 3 ML Vial SUBCUT SCH (18:01)
[2022-10-02] MEDS ORDERED: Nystatin Topical Powder 30 GM Bottle TOP PRN (19:18)
[2022-10-02] MEDS ORDERED: Non-Formulary Medication 1 Each PO SCH (21:00)
[2022-10-02] MEDS ORDERED: QUEtiapine 25 MG Tab PO SCH (21:00)
[2022-10-02] MEDS ORDERED: Ertapenem 1 GM Vial IVPUSH ONE (21:00)
[2022-10-02] MEDS ORDERED: Non-Formulary Medication 1 Each (Insulin Aspart 100 UNIT/ML Pen) SQ SCH (21:00)
[2022-10-02] MEDS ORDERED: Acetaminophen/HYDROcodone 325-10 MG Tab PO SCH (21:15)
[2022-10-02] MEDS: Mupirocin Oint 22 GM Tube TOP SCH (21:19)
[2022-10-02] MEDS: Saccharomyces Boulardii (Probiotic) 250 MG Cap PO SCH (21:46)
[2022-10-02] MEDS: Metoprolol Tartrate 50 MG Tab PO SCH (21:47)
[2022-10-02] MEDS: LINEZOLID 600 MG PO SCH (21:47)
[2022-10-02] MEDS: Carboxymethylcellulose Sodium 1% Ophth Gel 0.4 ML UD EYEBOTH SCH (21:48)
[2022-10-02] MEDS ORDERED: Meropenem 1 GM SDV IVPUSH SCH (22:00)
[2022-10-02] MEDS ORDERED: Ziprasidone Mesylate 20 MG Vial IM PRN (22:09)
[2022-10-02] MEDS ORDERED: Acetaminophen/HYDROcodone 325-10 MG Tab PO PRN (22:30)
[2022-10-02] MEDS: Pramipexole 0.125 MG Tab PO SCH (22:33)
[2022-10-03] MEDS: Heparin Sodium 5,000 Units/ML Vial SUBCUT SCH ×3 (05:29→21:37)
[2022-10-03] MEDS: Levothyroxine 75 MCG Tab PO SCH (05:29)
[2022-10-03 07:23] LABS: ANION GAP 12.8 mEq/L (7-13)
[2022-10-03] MEDS: Insulin Lispro 100 Units/ML 3 ML Vial SUBCUT SCH ×3 (07:46→16:47)
[2022-10-03] MEDS: Aspirin 81 MG Tab.EC PO SCH (07:59)
[2022-10-03] MEDS: Folic Acid 1 MG Tab PO SCH (07:59)
[2022-10-03] MEDS: Metoprolol Tartrate 50 MG Tab PO SCH ×2 (07:59→21:38)
[2022-10-03] MEDS ORDERED: Calcitriol 0.25 MCG Cap PO SCH (08:00)
[2022-10-03] MEDS: Saccharomyces Boulardii (Probiotic) 250 MG Cap PO SCH ×2 (08:01→21:37)
[2022-10-03] MEDS: Fluconazole 100 MG Tab PO SCH (08:01)
[2022-10-03] MEDS ORDERED: Magnesium Sulfate/Water 2 GM in Premix Bag 1 BAG IV ONE (08:01)
[2022-10-03] MEDS: Carboxymethylcellulose Sodium 1% Ophth Gel 0.4 ML UD EYEBOTH SCH ×2 (08:02→22:10)
[2022-10-03] MEDS: Ertapenem 1 GM Vial IVPUSH SCH (08:04)
[2022-10-03] MEDS: Mupirocin Oint 22 GM Tube TOP SCH ×2 (08:04→22:06)
[2022-10-03] MEDS: Sodium Chloride 0.9% 10 ML Syringe FLUSH PRN ×2 (08:12→21:36)
[2022-10-03] MEDS: LINEZOLID 600 MG PO SCH ×2 (08:22→22:07)
[2022-10-03] MEDS ORDERED: Pramipexole 0.125 MG Tab PO SCH (09:00)
[2022-10-03] MEDS ORDERED: Polyethylene Glycol 3350 Powder 17 GM Packet PO SCH (09:00)
[2022-10-03] MEDS ORDERED: Insulin Glarg,Human.Rec.Analog 100 Unit/ML SUBCUT SCH (09:00)
[2022-10-03] MEDS ORDERED: QUEtiapine 25 MG Tab PO SCH (09:00)
[2022-10-03] MEDS ORDERED: Ertapenem 1 GM Vial IV SCH (09:00)
[2022-10-03] MEDS ORDERED: Loperamide 2 MG Cap PO PRN (16:41)
[2022-10-03] MEDS ORDERED: Loperamide 2 MG Cap PO ONE (16:50)
[2022-10-03] MEDS: Ondansetron 4 MG/2 ML SDV IVPUSH PRN (19:13)
[2022-10-03] MEDS ORDERED: Dextrose 5%-0.9% NaCl 1,000 ML IV SCH (20:45)
[2022-10-03] MEDS: Pramipexole 0.125 MG Tab PO SCH (21:38)
[2022-10-03] MEDS: risperiDONE 1 MG Tab PO SCH (21:40)
[2022-10-03] MEDS: Acetaminophen 325 MG Tab PO PRN (21:43)
[2022-10-04] MEDS: Levothyroxine 75 MCG Tab PO SCH (05:26)
[2022-10-04] MEDS: Heparin Sodium 5,000 Units/ML Vial SUBCUT SCH ×2 (05:26→14:21)
[2022-10-04 07:34] LABS: ANION GAP 13.9 mEq/L (7-13)
[2022-10-04] MEDS: Ertapenem 1 GM Vial IVPUSH SCH (10:13)
[2022-10-04] MEDS: Sodium Chloride 0.9% 10 ML Syringe FLUSH PRN (10:14)
[2022-10-04] MEDS: Saccharomyces Boulardii (Probiotic) 250 MG Cap PO SCH (10:14)
[2022-10-04] MEDS: risperiDONE 1 MG Tab PO SCH (10:14)
[2022-10-04] MEDS: Folic Acid 1 MG Tab PO SCH (10:14)
[2022-10-04] MEDS: Fluconazole 100 MG Tab PO SCH (10:15)
[2022-10-04] MEDS: Aspirin 81 MG Tab.EC PO SCH (10:15)
[2022-10-04] MEDS: Metoprolol Tartrate 50 MG Tab PO SCH (10:15)
[2022-10-04] MEDS: Insulin Lispro 100 Units/ML 3 ML Vial SUBCUT SCH ×2 (10:16→11:53)
[2022-10-04] MEDS: LINEZOLID 600 MG PO SCH (10:17)
[2022-10-04] MEDS: Mupirocin Oint 22 GM Tube TOP SCH (10:19)
[2022-10-04] MEDS: Carboxymethylcellulose Sodium 1% Ophth Gel 0.4 ML UD EYEBOTH SCH (10:26)
[2022-10-04] MEDS ORDERED: Morphine 4 MG/ML Syringe IVPUSH PRN (14:58)
[2022-10-04] MEDS ORDERED: Atropine 1% Ophth Soln 5 ML Bottle SL PRN (14:59)
[2022-10-04] MEDS ORDERED: Ziprasidone Mesylate 20 MG Vial IM PRN ×2 (15:01→15:55)
[2022-10-04] MEDS: B COAGULAN PO SCH (15:26)
[2022-10-04] MEDS: CALCIUM PO SCH (15:26)
[2022-10-04] MEDS: [UNRECOGNIZED DRUG - OTHER] PO SCH (15:26)
[2022-10-04] MEDS: CRANBERRY PO SCH (15:26)
[2022-10-04] MEDS: Acetaminophen 325 MG Tab PO PRN (15:29)
[2022-10-04] MEDS: LORazepam 2 MG/ML SDV IVPUSH PRN ×2 (15:33→22:20)
[2022-10-04] MEDS: Morphine 4 MG/ML Syringe IVPUSH PRN (18:30)
[2022-10-05] MEDS: Morphine 4 MG/ML Syringe IVPUSH PRN ×3 (06:50→21:50)
[2022-10-05] MEDS: LORazepam 2 MG/ML SDV IVPUSH PRN ×2 (10:11→18:33)
[2022-10-06] MEDS: LORazepam 2 MG/ML SDV IVPUSH PRN (03:17)
[2022-10-07] MEDS: Morphine 4 MG/ML Syringe IVPUSH PRN (00:23)
[2022-10-07] MEDS: LORazepam 2 MG/ML SDV IVPUSH PRN (16:28)
[2022-10-08] MEDS: LORazepam 2 MG/ML SDV IVPUSH PRN ×4 (05:39→23:11)
[2022-10-08] MEDS: Ondansetron 4 MG/2 ML SDV IVPUSH PRN (23:11)
[2022-10-09] MEDS: Morphine 4 MG/ML Syringe IVPUSH PRN ×4 (01:00→20:20)
[2022-10-09] MEDS: LORazepam 2 MG/ML SDV IVPUSH PRN ×2 (16:17→20:15)
[2022-10-10] MEDS: LORazepam 2 MG/ML SDV IVPUSH PRN ×6 (04:00→22:39)
[2022-10-10] MEDS: Morphine 4 MG/ML Syringe IVPUSH PRN ×6 (04:06→22:45)
[2022-10-11] MEDS: LORazepam 2 MG/ML SDV IVPUSH PRN ×4 (07:03→22:14)
[2022-10-11] MEDS: Morphine 4 MG/ML Syringe IVPUSH PRN ×4 (07:04→22:14)
[2022-10-12] MEDS: LORazepam 2 MG/ML SDV IVPUSH PRN ×2 (02:26→07:39)
[2022-10-12] MEDS: Morphine 4 MG/ML Syringe IVPUSH PRN ×2 (02:27→07:40)
== END 2022-10-12 09:34 | disposition swing bed (61) | DRG 548 ==
LOC: DL.ED 10:22 → DL.MS 13:20 → DL.ED 14:19 → DL.MS 10-04 17:02
PROVIDERS: ADMIT Internal Medicine; ATTEND Internal Medicine
DX: M00.9 Pyogenic arthritis, unspecified (principal); G93.41 Metabolic encephalopathy; T83.518A Infection and inflammatory reaction due to other urinary catheter, initial encounter; N39.0 Urinary tract infection, site not specified; I13.0 Hypertensive heart and chronic kidney disease with heart failure and stage 1 through stage 4 chronic kidney disease, or unspecified chronic kidney disease; B37.89 Other sites of candidiasis; Z68.42 Body mass index [BMI] 45.0-49.9, adult; L02.214 Cutaneous abscess of groin; F05 Delirium due to known physiological condition; R44.1 Visual hallucinations; Z20.822 Contact with and (suspected) exposure to COVID-19; Z51.5 Encounter for palliative care; N73.9 Female pelvic inflammatory disease, unspecified; E11.9 Type 2 diabetes mellitus without complications; I50.9 Heart failure, unspecified; R32 Unspecified urinary incontinence; L89.319 Pressure ulcer of right buttock, unspecified stage; N18.30 Chronic kidney disease, stage 3 unspecified; E11.22 Type 2 diabetes mellitus with diabetic chronic kidney disease; D63.8 Anemia in other chronic diseases classified elsewhere; K76.0 Fatty (change of) liver, not elsewhere classified; E53.8 Deficiency of other specified B group vitamins; I10 Essential (primary) hypertension; E78.00 Pure hypercholesterolemia, unspecified; R15.9 Full incontinence of feces; E87.6 Hypokalemia; E83.42 Hypomagnesemia; E88.09 Other disorders of plasma-protein metabolism, not elsewhere classified; B37.2 Candidiasis of skin and nail; E78.5 Hyperlipidemia, unspecified; I25.10 Atherosclerotic heart disease of native coronary artery without angina pectoris; K57.30 Diverticulosis of large intestine without perforation or abscess without bleeding; Z88.1 Allergy status to other antibiotic agents; Z88.8 Allergy status to other drugs, medicaments and biological substances; E66.01 Morbid (severe) obesity due to excess calories; Z90.49 Acquired absence of other specified parts of digestive tract; Z72.820 Sleep deprivation; Z66 Do not resuscitate; Z79.890 Hormone replacement therapy; Z79.4 Long term (current) use of insulin; Z79.82 Long term (current) use of aspirin; Z79.899 Other long term (current) drug therapy
CPT/HCPCS: 0241U; 36415; 70450; 80053; 81001; 82140; 82947; 83605; 83735; 84145; 85025; 86140; 87040; 96374; 96375; 99211; 99223; 99233; 99238; 99285; A9270-GY; J0696; J1335; J1644; J2060; J2270; J2405; J3475; J3486; J3490; J7030; J7042

== ENCOUNTER 2022-10-12 09:07 | Inpatient (IN) | payer MEDICARE, MEDICAID ==
[2022-10-12] MEDS ORDERED: Ziprasidone Mesylate 20 MG Vial IM PRN (09:56)
[2022-10-12] MEDS: Morphine 4 MG/ML Syringe IVPUSH PRN ×3 (12:14→22:09)
[2022-10-12] MEDS: LORazepam 2 MG/ML SDV IVPUSH PRN ×3 (12:17→22:09)
[2022-10-12] MEDS ORDERED: Morphine 4 MG/ML Syringe IVPUSH ONE (12:50)
[2022-10-12] MEDS: Sodium Chloride 0.9% 10 ML Syringe FLUSH SCH (22:10)
[2022-10-13] MEDS: Morphine 4 MG/ML Syringe IVPUSH PRN ×5 (02:10→20:18)
[2022-10-13] MEDS: LORazepam 2 MG/ML SDV IVPUSH PRN ×5 (02:10→20:18)
[2022-10-13] MEDS: Atropine 1% Ophth Soln 5 ML Bottle SL PRN ×2 (07:19→17:26)
[2022-10-13] MEDS: Sodium Chloride 0.9% 10 ML Syringe FLUSH PRN ×3 (10:32→15:52)
[2022-10-13] MEDS: Sodium Chloride 0.9% 10 ML Syringe FLUSH SCH ×2 (13:14→20:19)
[2022-10-14] MEDS: Morphine 4 MG/ML Syringe IVPUSH PRN ×3 (00:15→04:40)
[2022-10-14] MEDS: LORazepam 2 MG/ML SDV IVPUSH PRN (00:15)
[2022-10-14] MEDS: Atropine 1% Ophth Soln 5 ML Bottle SL PRN (01:26)
[2022-10-14] MEDS ORDERED: LORazepam 2 MG/ML SDV IVPUSH PRN (02:37)
[2022-10-14] MEDS: Morphine 4 MG/ML Syringe ONE ×2 (02:40→02:57)
[2022-10-14] MEDS ORDERED: LORazepam 2 MG/ML SDV ONE (02:40)
[2022-10-14] MEDS: Sodium Chloride 0.9% 10 ML Syringe FLUSH SCH (12:11)
== END 2022-10-14 12:00 | disposition home or self-care (01) | DRG 92 ==
LOC: DL.MS 09:52
PROVIDERS: ADMIT Internal Medicine; ATTEND Internal Medicine
DX: G92.8 Other toxic encephalopathy (principal); B37.89 Other sites of candidiasis; I13.0 Hypertensive heart and chronic kidney disease with heart failure and stage 1 through stage 4 chronic kidney disease, or unspecified chronic kidney disease; M00.9 Pyogenic arthritis, unspecified; N39.0 Urinary tract infection, site not specified; E78.5 Hyperlipidemia, unspecified; Z66 Do not resuscitate; E11.22 Type 2 diabetes mellitus with diabetic chronic kidney disease; D63.1 Anemia in chronic kidney disease; N18.30 Chronic kidney disease, stage 3 unspecified; E86.0 Dehydration; Z20.822 Contact with and (suspected) exposure to COVID-19; E53.8 Deficiency of other specified B group vitamins; E87.6 Hypokalemia; E83.42 Hypomagnesemia; E78.00 Pure hypercholesterolemia, unspecified; E66.01 Morbid (severe) obesity due to excess calories; I50.9 Heart failure, unspecified; R32 Unspecified urinary incontinence; M17.10 Unilateral primary osteoarthritis, unspecified knee; R15.9 Full incontinence of feces; L89.319 Pressure ulcer of right buttock, unspecified stage; I25.10 Atherosclerotic heart disease of native coronary artery without angina pectoris; Z98.890 Other specified postprocedural states; Z79.82 Long term (current) use of aspirin; Z79.4 Long term (current) use of insulin; Z79.899 Other long term (current) drug therapy; Z90.49 Acquired absence of other specified parts of digestive tract
CPT/HCPCS: 99306; 99315; A9270-GY; J2060; J2270; J3490